=== PATIENT | male | born 1940 | race Caucasian/White ===

== ENCOUNTER 2016-11-23 16:38 | Outpatient (CLI) | payer MEDICARE, OTHER | END 2016-11-23 16:39 | disposition home or self-care (01) | DX: M79.605 Pain in left leg (principal); M25.562 Pain in left knee ==

== ENCOUNTER 2016-11-23 16:58 | Outpatient (CLI) | payer MEDICARE, OTHER | END 2016-11-23 16:59 | disposition home or self-care (01) | DX: M79.605 Pain in left leg (principal); M25.562 Pain in left knee ==

== ENCOUNTER 2017-11-15 08:00 | Outpatient (CLI) | payer MEDICARE, OTHER ==
[2017-11-15 12:33] LABS: ALBUMIN 4.1 g/dL (3.2-5.5); ALBUMIN/GLOBULIN RATIO 1.5 (1.0-2.2); ALKALINE PHOSPHATASE 45 IU/L (42-121); ALT ALANINE AMINOTRANSFERASE 18 IU/L (10-60); AST ASPARTATE AMINOTRANSFERASE 19 IU/L (10-42); BILIRUBIN,TOTAL 0.8 mg/dL (0.2-1.0); BUN - BLOOD UREA NITROGEN 24 mg/dL (6-20); CALCIUM 9.3 mg/dL (8.5-10.3); CARBON DIOXIDE - CO2 28 mmol/L (21-32); CHLORIDE 103 mmol/L (101-111); CHOL/HDL RATIO 5.2 (<5.0); CHOLESTEROL 223 mg/dL; CREATININE 1.1 mg/dL (0.6-1.2); GFR - MDRD 65 (>89); GLUCOSE 94 mg/dL (70-100); HDL CHOLESTEROL 43 mg/dL; LDL CHOLESTEROL,CALCULATED 162 mg/dL; LDL/HDL RATIO 3.8 (<3.6); SODIUM 136 mmol/L (135-145); TOTAL PROTEIN 6.8 g/dL (6.7-8.2); VLDL CHOLESTEROL 18 mg/dL
[2017-11-15 12:35] LABS: BASOPHILS % (AUTO) 0.9 %; EOSINOPHILS # (AUTO) 0.1 10^3/uL (0.0-0.7); EOSINOPHILS % (AUTO) 1.5 %; HGB - HEMOGLOBIN 14.1 g/dL (14.0-18.0); MEAN CORPUSCULAR HEMOGLOBIN 31.9 pg (27.0-31.0); MEAN CORPUSCULAR HGB CONC 34.8 g/dL (32.0-36.0); MEAN CORPUSCULAR VOLUME 91.6 fL (80.0-94.0); MEAN PLATELET VOLUME 8.6 fL (7.4-11.4); MONOCYTES # (AUTO) 0.6 10^3/uL (0.0-1.0); MONOCYTES % (AUTO) 10.7 %; NEUTROPHILS # (AUTO) 3.5 10^3/uL (1.5-6.6); NEUTROPHILS % (AUTO) 66.9 %; PLT - PLATELET COUNT 178 10^3/uL (130-450); RED BLOOD COUNT 4.42 10^6/uL (4.70-6.10); RED CELL DISTRIBUTION WIDTH 13.3 % (12.0-15.0); WHITE BLOOD COUNT 5.2 x10^3/uL (4.8-10.8)
== END 2017-11-15 08:01 | disposition home or self-care (01) ==
LOC: LAB.WCP 08:00
PROVIDERS: ATTEND Family Medicine
DX: I10 Essential (primary) hypertension (principal); Z12.5 Encounter for screening for malignant neoplasm of prostate; E78.5 Hyperlipidemia, unspecified
CPT/HCPCS: 36415; 80053; 80061; 85025; G0103; 83721; 84153

== ENCOUNTER 2017-11-25 08:00 | Outpatient (CLI) | payer MEDICARE, OTHER ==
[2017-11-25 19:59] LABS: THYROID STIMULATING HORMONE 1.87 uIU/mL (0.34-5.60)
[2017-11-25 20:02] LABS: FREE T4 (FREE THYROXINE) 0.88 ng/dL (0.58-1.64)
== END 2017-11-25 08:01 | disposition home or self-care (01) ==
LOC: LAB.WCP 08:00
PROVIDERS: ATTEND Family Medicine
DX: R53.83 Other fatigue (principal)
CPT/HCPCS: 36415; 82306; 82607; 82746; 84439; 84443; 84481

== ENCOUNTER 2017-11-26 11:01 | Outpatient (CLI) | payer MEDICARE, OTHER | END 2017-11-26 11:02 | disposition home or self-care (01) | LOC: DI 11:01 | PROVIDERS: ATTEND Family Medicine | DX: R07.89 Other chest pain (principal); I35.1 Nonrheumatic aortic (valve) insufficiency; I77.810 Thoracic aortic ectasia | CPT/HCPCS: 93306 ==

== ENCOUNTER 2017-12-09 09:26 | Outpatient (CLI) | payer MEDICARE, OTHER ==
[2017-12-09 10:02] LABS: CREATININE 1.2 mg/dL (0.6-1.2)
[2017-12-09] MEDS ORDERED: IOPAMIDOL-300 100 ML VIAL ONE (10:41)
[2017-12-09] MEDS ORDERED: IOPAMIDOL-300 100 ML VIAL IVP ONE (14:08)
--- NOTE | 2017-12-09 15:29 | CT Report ---
CT ANGIOGRAM AORTA: 12/09/2017 CLINICAL INDICATION: Dilated aortic root. TECHNIQUE: Axial CT images of the chest were obtained with 80 mL Isovue 300 intravenously, with sagittal and coronal 3-D reconstructions performed. FINDINGS: The coronary arteries demonstrate calcification. There is mild prominence of the ascending aorta. At the sinus of Valsalva, the ascending aorta measures 3.8 cm, and 4.3 cm at the level of the main pulmonary artery. The ascending aorta just distal to the takeoff of the left subclavian artery measures 2.9 cm, then there is mild ectasia of the proximal descending thoracic aorta, measuring 3.7 cm. At the level of the main pulmonary artery, the descending thoracic aorta measures 3.4 x 2.8 cm. The lungs demonstrate mild emphysema. No pulmonary nodule or mass lesion is appreciated. No effusion or pneumothorax is present. Osseous structures demonstrate degenerative changes. IMPRESSION: MILD ECTASIA OF THE THORACIC AORTA, WITHOUT JOHNSON ANEURYSMAL DILATATION. MILD EMPHYSEMA. In accordance with CT protocol optimization, one or more of the following dose reduction techniques were utilized for this exam: automated exposure control, adjustment of mA and/or KV based on patient size, or use of iterative reconstructive technique. TD: 12/09/2017 15:28
== END 2017-12-09 09:27 | disposition home or self-care (01) ==
LOC: LAB 09:26 → DI 09:27
PROVIDERS: ATTEND Family Medicine
DX: I77.810 Thoracic aortic ectasia (principal); J43.9 Emphysema, unspecified
CPT/HCPCS: 36415; 71275; 82565; Q9967

== ENCOUNTER 2018-09-06 09:10 | Emergency (ER) | payer MEDICARE, OTHER ==
--- NOTE | 2018-09-06 09:27 | ED Physician Documentation ---
History of Present Illness - Stated complaint Stated Complaint: BLOOD PRESSURE CONCERNS - Chief complaint Chief Complaint: General - History obtained from History obtained from: Patient - History of Present Illness Timing: Other (78-year-old gentleman with history of hypertension, takes long- acting metoprolol, 50 mg once a day. Saw his physician for routine visit about a week ago and it was noted in the office that his blood pressure was high and he was told to start monitoring it. Since then he has been running high blood pressures, usually in the range of 180 over read to as high as 200/90 this morning. He is asymptomatic, specifically he has no chest pain, trouble breathing, swollen ankles, or acute urinary complaints other than nocturia which is chronic.) Review of Systems Constitutional: denies: Fever, Chills, Fatigue Cardiac: denies: Chest pain / pressure, Palpitations Respiratory: denies: Dyspnea, Cough GI: denies: Abdominal Pain PD PAST MEDICAL HISTORY - Past Medical History Cardiovascular: Hypertension Musculoskeletal: Osteoarthritis - Past Surgical History Past Surgical History: No - Present Medications Home Medications: Ambulatory Orders Medication Instructions Recorded Confirmed Acetaminophen [Tylenol] 650 mg PO Q6H #30 tablet 09/21/14 Carisoprodol [Soma] 350 mg PO Q8H PRN #15 tablet 09/21/14 Metoprolol Tartrate 25 mg ORAL DAILY 09/21/14 09/21/14 oxyCODONE [Roxicodone] 5 mg PO Q6H PRN #15 tablet 09/21/14 predniSONE [Deltasone] 40 mg PO DAILY 5 Days tablet 09/21/14 Lisinopril [Prinivil] 10 mg PO DAILY #30 tablet 09/06/18 - Allergies Allergies/Adverse Reactions: Allergies Allergy/AdvReac Type Severity Reaction Status Date / Time No Known Drug Allergies Allergy Verified 09/21/14 11:16 - Social History Does the pt smoke?: No Smoking Status: Never smoker Does the pt drink ETOH?: Yes Does the pt have substance abuse?: No - Immunizations Immunizations are current?: No Immunizations: TDAP >10years/unknown PD ED PE NORMAL - Vitals Vital signs reviewed: Yes - General General: Alert and oriented X 3, No acute distress - Neck Neck: Supple, no meningeal sign, No bony TTP - Cardiac Cardiac: RRR, No murmur - Respiratory Respiratory: No respiratory distress, Clear bilaterally - Abdomen Abdomen: Non tender - Extremities Extremities: No edema - Neuro Neuro: Alert and oriented X 3, Normal speech Results - Vitals Vitals: Vital Signs - 24 hr 09/06/18 09/06/18 09/06/18 09:19 09:45 09:48 Temperature 36.0 C L Heart Rate 66 62 58 L Respiratory 16 16 15 Rate Blood Pressure 184/82 H 159/72 H 147/67 H O2 Saturation 98 100 100 Oxygen O2 Source Room air - EKG (time done) 0932 Rate: Rate (enter#) (62) Rhythm: NSR [place]: Normal Intervals: Prolonged NV (241msec) QRS: Normal Ischemia: Non specific changes (Concave JPE anterior with q waves III/F and V1/2) Computer interpretation: Agree with computer - Labs Labs: Laboratory Tests 09/06/18 09/06/18 09:35 09:35 Sodium 133 L Potassium 4.1 Chloride 100 L Carbon Dioxide 28 Anion Gap 5.0 L BUN 18 Creatinine 1.0 Estimated GFR (MDRD) 72 L Glucose 108 H Calcium 9.4 Troponin I < 0.04 Departure - Departure Disposition: 01 Home, Self Care Clinical Impression: Hyponatremia Hypertension Qualifiers: Hypertension type: essential hypertension Qualified Code(s): I10 - Essential (primary) hypertension Condition: Good Record reviewed to determine appropriate education?: Yes Instructions: ED HTN Established Prescriptions: Lisinopril [Prinivil] 10 mg PO DAILY #30 tablet Comments: Follow-up with your doctor within the week for blood pressure recheck. Also your sodium was mildly low today at 133 and she may want to recheck that at some point.
[2018-09-06 09:51] LABS: CALCIUM 9.4 mg/dL (8.5-10.3)
[2018-09-06 10:04] VITALS: BP 145/70
== END 2018-09-06 10:10 | disposition home or self-care (01) ==
LOC: ED 09:10
DX: E87.1 Hypo-osmolality and hyponatremia (principal); I10 Essential (primary) hypertension; I44.0 Atrioventricular block, first degree
CPT/HCPCS: 36415; 80048; 84484; 93005; 99283

== ENCOUNTER 2018-12-22 08:02 | Outpatient (CLI) | payer MEDICARE, OTHER ==
[2018-12-22 08:37] LABS: BASOPHILS # (AUTO) 0.1 10^3/uL (0.0-0.1); EOSINOPHILS # (AUTO) 0.1 10^3/uL (0.0-0.7); EOSINOPHILS % (AUTO) 1.3 %; HGB - HEMOGLOBIN 14.4 g/dL (14.0-18.0); LYMPHOCYTES # (AUTO) 0.9 10^3/uL (1.5-3.5); MEAN CORPUSCULAR HEMOGLOBIN 31.4 pg (27.0-31.0); MEAN CORPUSCULAR HGB CONC 34.3 g/dL (32.0-36.0); MEAN CORPUSCULAR VOLUME 91.7 fL (80.0-94.0); MEAN PLATELET VOLUME 7.9 fL (7.4-11.4); MONOCYTES # (AUTO) 0.5 10^3/uL (0.0-1.0); MONOCYTES % (AUTO) 9.8 %; NEUTROPHILS # (AUTO) 3.7 10^3/uL (1.5-6.6); NEUTROPHILS % (AUTO) 70.9 %; PLT - PLATELET COUNT 188 10^3/uL (130-450); RED BLOOD COUNT 4.57 10^6/uL (4.70-6.10); RED CELL DISTRIBUTION WIDTH 13.7 % (12.0-15.0); WHITE BLOOD COUNT 5.3 x10^3/uL (4.8-10.8)
[2018-12-22 08:53] LABS: ALBUMIN 4.2 g/dL (3.2-5.5); ALBUMIN/GLOBULIN RATIO 1.4 (1.0-2.2); ALKALINE PHOSPHATASE 55 IU/L (42-121); ALT ALANINE AMINOTRANSFERASE 27 IU/L (10-60); AST ASPARTATE AMINOTRANSFERASE 29 IU/L (10-42); BILIRUBIN,TOTAL 1.2 mg/dL (0.2-1.0); BUN - BLOOD UREA NITROGEN 20 mg/dL (6-20); CHOLESTEROL 224 mg/dL; CREATININE 1.1 mg/dL (0.6-1.2); GFR - MDRD 65 (>89); GLUCOSE 111 mg/dL (70-100); HDL CHOLESTEROL 56 mg/dL; LDL CHOLESTEROL,CALCULATED 145 mg/dL; LDL/HDL RATIO 2.6 (<3.6); TOTAL PROTEIN 7.1 g/dL (6.7-8.2); VLDL CHOLESTEROL 23 mg/dL
[2018-12-22 08:57] LABS: CALCIUM 9.7 mg/dL (8.5-10.3); CARBON DIOXIDE - CO2 28 mmol/L (21-32); CHLORIDE 98 mmol/L (101-111); SODIUM 134 mmol/L (135-145)
== END 2018-12-22 08:03 | disposition home or self-care (01) ==
LOC: LAB 08:02
PROVIDERS: ATTEND Nurse Practitioner
DX: R13.10 Dysphagia, unspecified (principal); I10 Essential (primary) hypertension; E78.5 Hyperlipidemia, unspecified
CPT/HCPCS: 36415; 80053; 80061; 83721; 84443; 85025

== ENCOUNTER 2018-12-25 15:21 | Outpatient (CLI) | payer MEDICARE, OTHER ==
--- NOTE | 2018-12-26 09:54 | Ultrasound Report ---
Reason: DYSPHAGIA Procedure Date: 12/25/2018 Accession Number: [id number] / [id number] Procedure: US - Head or Neck Soft Tissue CPT Code: FULL RESULT: EXAM: THYROID ULTRASOUND EXAM DATE: 12/25/2018 04:40 PM. CLINICAL HISTORY: DYSPHAGIA. COMPARISON: None. TECHNIQUE: Real time sonographic imaging of the thyroid was performed by the dryer feeder. Multiple indirect sales representative static images were saved for review. FINDINGS: THYROID GLAND: Several scattered tiny bilateral thyroid cysts measuring up to 0.2 cm. Right Lobe: 4.5 x 1.9 x 2.2 cm, volume 9.8 cc. Normal background echotexture. Right Lobe Nodules: No solid nodule. Left Lobe: 4.2 x 1.5 x 2.3 cm, volume 7.5 cc. Normal background echotexture. Left Lobe Nodules: No solid nodule. Isthmus: 0.4 cm AP. Isthmic Nodules: No solid nodule. LYMPH NODES: No adenopathy demonstrated in the central or lateral compartment. OTHER: None. IMPRESSION: 1. Several scattered tiny bilateral thyroid cysts. 2. No suspicious thyroid nodule or soft tissue adenopathy evident. Management recommendations are based on 2015 [place] [employer] Management Guidelines for Adult Patients with Thyroid Nodules and Differentiated Thyroid Cancer. RADIA
== END 2018-12-25 15:22 | disposition home or self-care (01) ==
LOC: DI 15:21
PROVIDERS: ATTEND Nurse Practitioner
DX: E04.2 Nontoxic multinodular goiter (principal); R13.10 Dysphagia, unspecified
CPT/HCPCS: 76536

== ENCOUNTER 2019-08-13 10:35 | Outpatient (CLI) | payer MEDICARE, OTHER ==
--- NOTE | 2019-08-14 13:10 | XRAY Report ---
Reason: BACK PAIN,LUMBAR Procedure Date: 08/13/2019 Accession Number: [id number] / [id number] Procedure: XR - Lumbar Spine 2 View CPT Code: FULL RESULT: EXAM: LUMBOSACRAL SPINE RADIOGRAPHY EXAM DATE: 08/13/2019 10:50 AM. CLINICAL HISTORY: BACK Pain, lumbar. COMPARISONS: None. TECHNIQUE: 3 views. FINDINGS: Alignment: Grade 1 anterolisthesis of L3 on L4. No scoliosis. Bones: Five [id number] lumbar vertebral bodies are present. No fractures or bone lesions. Mild osteophytic spurring at L4 and L5. Disks: Moderate disk space narrowing in the mid to lower lumbar spine, worst at L4-L5 and L5-S1. Facets: Moderate hypertrophic changes of the facet articulations bilaterally L3-L4, L4-L5, and L5-S1. Sacroiliac Joints: Within normal limits Soft Tissues: Normal. The visualized bowel gas pattern is normal. IMPRESSION: Moderate degenerative changes of the mid to lower lumbar spine. Grade 1 anterolisthesis of L3 on L4. RADIA
== END 2019-08-13 10:36 | disposition home or self-care (01) ==
LOC: DI 10:35
PROVIDERS: ATTEND Nurse Practitioner
DX: M51.36 Other intervertebral disc degeneration, lumbar region (principal); M51.37 Other intervertebral disc degeneration, lumbosacral region; M47.816 Spondylosis without myelopathy or radiculopathy, lumbar region; M47.817 Spondylosis without myelopathy or radiculopathy, lumbosacral region; M43.16 Spondylolisthesis, lumbar region
CPT/HCPCS: 72100

== ENCOUNTER 2019-10-26 08:46 | Outpatient (CLI) | payer MEDICARE, OTHER ==
--- NOTE | 2019-10-26 10:12 | Ultrasound Report ---
Reason: THYROID NODULE Procedure Date: 10/26/2019 Accession Number: [id number] / [id number] Procedure: US - Head or Neck Soft Tissue CPT Code: Final Report FULL RESULT: EXAM: THYROID ULTRASOUND EXAM DATE: 10/26/2019 09:33 AM. CLINICAL HISTORY: THYROID NODULE. COMPARISON: HEAD OR NECK SOFT TISSUE 12/25/2018 4:23 PM. TECHNIQUE: Real time sonographic imaging of the thyroid was performed by the grain manager. Multiple account representative static images were saved for review. FINDINGS: THYROID GLAND: Right Lobe: 4.6 x 1.9 x 1.6 cm, volume 7.3 cc. Normal background echotexture. Right Lobe Nodules: 1. Posterior midpole 7 x 7 x 5 mm hypoechoic solid nodule. Left Lobe: 4.2 x 1.6 x 1.6 cm, volume 5.6 cc. Normal background echotexture. Left Lobe Nodules: 1. Few scattered small cystic appearing nodules measuring up to approximately 3 mm at the lower pole. Isthmus: 0.4 cm AP. Isthmic Nodules: None. LYMPH NODES: No adenopathy demonstrated in the central or lateral compartment. OTHER: None. IMPRESSION: 1. Subcentimeter right thyroid nodule and few scattered small cystic appearing nodules in the left thyroid. Management recommendations are based on 2015 [place] [employer] Management Guidelines for Adult Patients with Thyroid Nodules and Differentiated Thyroid Cancer. RADIA
== END 2019-10-26 08:47 | disposition home or self-care (01) ==
LOC: DI 08:46
PROVIDERS: ATTEND Nurse Practitioner
DX: E04.2 Nontoxic multinodular goiter (principal)
CPT/HCPCS: 76536

== ENCOUNTER 2019-11-12 07:37 | Outpatient (CLI) | payer MEDICARE, OTHER ==
--- NOTE | 2019-11-12 12:45 | CARDIAC PROCEDURE NOTE ---
DATE OF SERVICE: 11/12/2019 Physician: Shy Nettles MD, [facility] INDICATION: Chest pain, hypertension, dilated aortic root, abnormal EKG. CARDIAC RISK FACTORS: Male gender, advanced age, hypertension. DESCRIPTION OF PROCEDURE: After signing informed consent, the patient underwent a Nicolas-protocol treadmill stress test with Echo imaging pre and post exercise. RESTING HEART RATE: 60. PEAK HEART RATE: 122 (85% predicted maximum heart rate for age). RESTING BLOOD PRESSURE: 132/75. PEAK BLOOD PRESSURE: 219/76. The patient exercised for 7 minutes and 50 seconds on a Nicolas-protocol treadmill stress test. He achieved a peak heart rate of 122 (85% PMHR) and 9.95 METS. The patient denied any chest pain throughout exercise. He had moderate shortness of breath at peak. Excessive blood pressure response to exercise was seen (the patient was told not to take any morning medications). Oxygen saturation was 90-98% on room air throughout the entire test. RESTING EKG: Normal sinus rhythm, first-degree AV block, rare PVC, poor R-wave progression. EKG AT PEAK: 1.[address] depressions develop in leads V5 and V6. SUMMARY: 1. Abnormal resting EKG. 2. Fair exercise tolerance. 3. ST depressions developed, suggestive of ischemia by EKG criteria during treadmill exercise. 4. Blood pressure response was excessive to exercise, but the patient was told not to take morning medications. 5. Cardiac risk based on all the above: Moderate-High. 6. Echo images looking for abnormal wall motion reported separately. cc: ASHWIN Funez NP-C TD: 11/12/2019 12:24 [facility]
== END 2019-11-12 07:38 | disposition home or self-care (01) ==
LOC: DI 07:37
PROVIDERS: ATTEND Nurse Practitioner
DX: R07.89 Other chest pain (principal); I77.810 Thoracic aortic ectasia; R94.31 Abnormal electrocardiogram [ECG] [EKG]; I10 Essential (primary) hypertension; I35.1 Nonrheumatic aortic (valve) insufficiency
CPT/HCPCS: 93350

== ENCOUNTER 2020-05-03 08:38 | Outpatient (CLI) | payer MEDICARE, OTHER ==
[2020-05-03 08:55] LABS: BASOPHILS % (AUTO) 0.7 %; EOSINOPHILS # (AUTO) 0.1 10^3/uL (0.0-0.7); LYMPHOCYTES # (AUTO) 0.9 10^3/uL (1.5-3.5); LYMPHOCYTES % (AUTO) 20.4 %; MEAN CORPUSCULAR HEMOGLOBIN 31.8 pg (27.0-31.0); MEAN CORPUSCULAR HGB CONC 34.1 g/dL (32.0-36.0); MEAN CORPUSCULAR VOLUME 93.2 fL (80.0-94.0); MEAN PLATELET VOLUME 9.6 fL (7.4-11.4); MONOCYTES # (AUTO) 0.6 10^3/uL (0.0-1.0); MONOCYTES % (AUTO) 13.1 %; NEUTROPHILS # (AUTO) 2.8 10^3/uL (1.5-6.6); NEUTROPHILS % (AUTO) 63.6 %; PLT - PLATELET COUNT 187 10^3/uL (130-450); RED CELL DISTRIBUTION WIDTH 12.3 % (12.0-15.0); WHITE BLOOD COUNT 4.4 x10^3/uL (4.8-10.8)
[2020-05-03 09:08] LABS: ALBUMIN 4.2 g/dL (3.2-5.5); ALBUMIN/GLOBULIN RATIO 1.8 (1.0-2.2); ALKALINE PHOSPHATASE 46 IU/L (42-121); ALT ALANINE AMINOTRANSFERASE 17 IU/L (10-60); AST ASPARTATE AMINOTRANSFERASE 21 IU/L (10-42); BUN - BLOOD UREA NITROGEN 24 mg/dL (6-20); CALCIUM 9.6 mg/dL (8.5-10.3); CARBON DIOXIDE - CO2 28 mmol/L (21-32); CHLORIDE 96 mmol/L (101-111); CHOL/HDL RATIO 3.9 (<5.0); CHOLESTEROL 201 mg/dL; CREATININE 1.1 mg/dL (0.6-1.2); GLUCOSE 108 mg/dL (70-100); HDL CHOLESTEROL 51 mg/dL; LDL CHOLESTEROL,CALCULATED 140 mg/dL; LDL/HDL RATIO 2.7 (<3.6); SODIUM 133 mmol/L (135-145); TOTAL PROTEIN 6.5 g/dL (6.7-8.2); VLDL CHOLESTEROL 10 mg/dL
[2020-05-03 11:41] LABS: HB2 TOTAL 14.4 g/dL; HEMOGLOBIN A1C 0.56 g/dL; HEMOGLOBIN A1C % 5.7 % (4.6-6.2)
== END 2020-05-03 08:39 | disposition home or self-care (01) ==
LOC: LAB 08:38
PROVIDERS: ATTEND Nurse Practitioner
DX: R94.31 Abnormal electrocardiogram [ECG] [EKG] (principal); E78.5 Hyperlipidemia, unspecified; Z12.5 Encounter for screening for malignant neoplasm of prostate; R73.01 Impaired fasting glucose; E04.1 Nontoxic single thyroid nodule; R53.83 Other fatigue
CPT/HCPCS: 36415; 80053; 80061; 83036; 84443; 85025; G0103; 83721; 84153

== ENCOUNTER 2020-05-10 15:53 | Outpatient (CLI) | payer MEDICARE, OTHER ==
--- NOTE | 2020-05-10 17:32 | XRAY Report ---
PROCEDURE: Cervical Spine 2 View INDICATIONS: Neck pain TECHNIQUE: 3 view(s) of the cervical spine were acquired. COMPARISON: None. FINDINGS: Bones: Straightening of the usual cervical lordosis. Disc height loss from C3-C4 through C6-C7 with a ssociated degenerative endplate changes, facet hypertrophy, and uncovertebral hypertrophy. Vertebral body heights maintained. Soft tissues: No prevertebral soft tissue swelling. IMPRESSION: Degenerative changes from C3-C4 through C6-C7. MRI of the cervical spine could be consid ered for further evaluation if clinically warranted. Reviewed by: Reed Landon MD on 05/10/2020 5:31 PM PDT Approved by: Reed Landon MD on 05/10/2020 5:31 PM PDT Station ID: [id number]
== END 2020-05-10 15:54 | disposition home or self-care (01) ==
LOC: DI 15:53
PROVIDERS: ATTEND Nurse Practitioner
DX: M50.31 Other cervical disc degeneration, high cervical region (principal); M47.812 Spondylosis without myelopathy or radiculopathy, cervical region
CPT/HCPCS: 72040

== ENCOUNTER 2020-07-20 09:00 | Outpatient (CLI) | payer MEDICARE, OTHER ==
[2020-07-20 11:41] LABS: BASOPHILS % (AUTO) 0.4 %; EOSINOPHILS # (AUTO) 0.1 10^3/uL (0.0-0.7); EOSINOPHILS % (AUTO) 1.3 %; HGB - HEMOGLOBIN 12.7 g/dL (14.0-18.0); LYMPHOCYTES # (AUTO) 0.8 10^3/uL (1.5-3.5); LYMPHOCYTES % (AUTO) 17.9 %; MEAN CORPUSCULAR HEMOGLOBIN 30.8 pg (27.0-31.0); MEAN CORPUSCULAR HGB CONC 33.2 g/dL (32.0-36.0); MONOCYTES # (AUTO) 0.6 10^3/uL (0.0-1.0); NEUTROPHILS # (AUTO) 3.1 10^3/uL (1.5-6.6); NEUTROPHILS % (AUTO) 68.4 %; PLT - PLATELET COUNT 217 10^3/uL (130-450); RED BLOOD COUNT 4.12 10^6/uL (4.70-6.10); RED CELL DISTRIBUTION WIDTH 12.7 % (12.0-15.0); WHITE BLOOD COUNT 4.6 x10^3/uL (4.8-10.8)
[2020-07-20 11:48] LABS: ALBUMIN/GLOBULIN RATIO 1.5 (1.0-2.2); BILIRUBIN,TOTAL 0.8 mg/dL (0.2-1.0); CALCIUM 9.5 mg/dL (8.5-10.3); TOTAL PROTEIN 6.6 g/dL (6.7-8.2)
== END 2020-07-20 23:59 | disposition home or self-care (01) ==
LOC: LAB.WCP 09:00
PROVIDERS: ATTEND Family Medicine
DX: R10.9 Unspecified abdominal pain (principal)
CPT/HCPCS: 36415; 80053; 85025

== ENCOUNTER 2020-08-01 09:19 | Outpatient (CLI) | payer MEDICARE, OTHER ==
[2020-08-01] MEDS ORDERED: IOVERSOL 320 100 ML VIAL IVP ONE ×2 (09:34→17:26)
[2020-08-01] MEDS ORDERED: IOVERSOL 320 50 ML VIAL ONE (09:34)
--- NOTE | 2020-08-01 16:19 | CT Report ---
PROCEDURE: Abdomen/Pelvis W INDICATIONS: RLQ ABDOMINAL PAIN CONTRAST: IV CONTRAST: Optiray 320 ml: 100 PO CONTRAST: Optiray 320 ml50 TECHNIQUE: After the administration of oral and intravenous contrast, 5 mm thick sections acquired from the diap hragms to the symphysis. 5 mm thick coronal and sagittal reformats were acquired. For radiation dos e reduction, the following was used: automated exposure control, adjustment of mA and/or kV accordin g to patient size. COMPARISON: None. FINDINGS: Image quality: Excellent. ABDOMEN: Lung bases: Lung bases are clear. Heart size is normal. Solid organs: Liver and spleen are normal in size and enhancement. Gallbladder appears normal. Bladimir iary system is non dilated. Pancreas enhances normally. No adrenal nodules. Kidneys demonstrate no rmal size and enhancement, without hydronephrosis. Peritoneum and bowel: Multilevel diverticula are seen in the sigmoid colon. There is a trace amount o f fat stranding adjacent to the sigmoid colon, and mild diverticulitis is not excluded. No ascites or pneumoperitoneum is seen. There are no signs of bowel obstruction. Nodes and vessels: No retroperitoneal or mesenteric adenopathy by size criteria. Aorta and inferior vena cava are normal in size. Mild atherosclerotic calcifications are seen in the aorta. Miscellaneous: No ventral hernias. PELVIS: Genitourinary: Bladder wall thickness is normal. Miscellaneous: No inguinal hernias or adenopathy. Bones: No suspicious bony lesions. No vertebral body compression fractures. Multiple ossifications are seen adjacent to the pubic symphysis on the left, which are likely related to prior trauma. No a cute fracture is seen. Degenerative changes are seen in the right sacroiliac joint and the included s pine. IMPRESSION: Colonic diverticulosis with trace inflammatory fat stranding adjacent to sigmoid colon that is suspic ious for mild acute diverticulitis. No focal fluid collection or pneumoperitoneum is seen. Reviewed by: Sony Callahan MD on 08/01/2020 12:02 PM PDT Approved by: Sony Callahan MD on 08/01/2020 12:02 PM PDT Station ID: [id number]
[2020-08-01] MEDS ORDERED: IOVERSOL 320 50 ML VIAL PO ONE (17:26)
== END 2020-08-01 09:20 | disposition home or self-care (01) ==
LOC: DI 09:19
PROVIDERS: ATTEND Family Medicine
DX: K57.30 Diverticulosis of large intestine without perforation or abscess without bleeding (principal); R93.3 Abnormal findings on diagnostic imaging of other parts of digestive tract
CPT/HCPCS: 74177; Q9967

== ENCOUNTER 2021-01-18 08:00 | Outpatient (CLI) | payer MEDICARE, OTHER ==
[2021-01-18 12:21] LABS: BASOPHILS % (AUTO) 0.2 %; EOSINOPHILS % (AUTO) 0.6 %; HCT - HEMATOCRIT 36.6 % (42.0-52.0); HGB - HEMOGLOBIN 12.3 g/dL (14.0-18.0); LYMPHOCYTES # (AUTO) 0.6 10^3/uL (1.5-3.5); LYMPHOCYTES % (AUTO) 11.3 %; MEAN CORPUSCULAR HEMOGLOBIN 32.1 pg (27.0-31.0); MEAN CORPUSCULAR HGB CONC 33.6 g/dL (32.0-36.0); MEAN CORPUSCULAR VOLUME 95.6 fL (80.0-94.0); MEAN PLATELET VOLUME 9.9 fL (7.4-11.4); MONOCYTES # (AUTO) 0.3 10^3/uL (0.0-1.0); MONOCYTES % (AUTO) 5.9 %; NEUTROPHILS % (AUTO) 81.6 %; PLT - PLATELET COUNT 198 10^3/uL (130-450); RED BLOOD COUNT 3.83 10^6/uL (4.70-6.10); RED CELL DISTRIBUTION WIDTH 12.8 % (12.0-15.0)
[2021-01-18 12:39] LABS: ESTIMATED AVERAGE GLUCOSE 120 mg/dL (70-100); HEMOGLOBIN A1c% 5.8 % (4.27-6.07)
[2021-01-18 12:47] LABS: THYROID STIMULATING HORMONE 1.2 uIU/mL (0.34-5.60)
[2021-01-18 12:50] LABS: ALBUMIN 4.1 g/dL (3.2-5.5); ALBUMIN/GLOBULIN RATIO 1.5 (1.0-2.2); ALKALINE PHOSPHATASE 45 IU/L (42-121); ALT ALANINE AMINOTRANSFERASE 21 IU/L (10-60); AST ASPARTATE AMINOTRANSFERASE 24 IU/L (10-42); BILIRUBIN,TOTAL 0.9 mg/dL (0.2-1.0); BUN - BLOOD UREA NITROGEN 22 mg/dL (6-20); CALCIUM 9.8 mg/dL (8.5-10.3); CARBON DIOXIDE - CO2 25 mmol/L (21-32); CHLORIDE 100 mmol/L (101-111); CHOL/HDL RATIO 3.6 (<5.0); CHOLESTEROL 218 mg/dL; GFR - MDRD 72 (>89); GLUCOSE 107 mg/dL (70-100); HDL CHOLESTEROL 60 mg/dL; LDL CHOLESTEROL,CALCULATED 142 mg/dL; LDL/HDL RATIO 2.4 (<3.6); POTASSIUM 4.7 mmol/L (3.5-5.0); SODIUM 135 mmol/L (135-145); TOTAL PROTEIN 6.8 g/dL (6.7-8.2); TRIGLYCERIDES 81 mg/dL; VLDL CHOLESTEROL 16 mg/dL
[2021-01-18 12:51] LABS: CREATININE,URINE 57.4 mg/dL; MICROALBUM/CREATININE RATIO,UR 8.7 ug/mg (<30.0); MICROALBUMIN,URINE 0.5 mg/dL (0-300.0)
== END 2021-01-18 23:59 | disposition home or self-care (01) ==
LOC: LAB.WCP 08:00
PROVIDERS: ATTEND Internal Medicine
DX: I10 Essential (primary) hypertension (principal); R73.01 Impaired fasting glucose
CPT/HCPCS: 36415; 80053; 80061; 82043; 82570; 83036; 83721; 84443; 85025

== ENCOUNTER 2021-01-25 08:00 | Outpatient (CLI) | payer MEDICARE, OTHER ==
[2021-01-25 11:55] LABS: ABSOLUTE RETICS # AUTO 0.082 10^6/uL (0.020-0.110); RED BLOOD COUNT 4.06 10^6/uL (4.70-6.10); RETICULOCYTE COUNT % (AUTO) 2.01 % (0.5-2.3)
[2021-01-25 12:58] LABS: % IRON SATURATION 31 % (20-50); IRON 110 ug/dL (45-182); TOTAL IRON BINDING CAPACITY 356 ug/dL (250-450); TRANSFERRIN 254 mg/dL (180-329)
[2021-01-25 12:59] LABS: FERRITIN 104.1 ng/mL (23.9-336.2)
== END 2021-01-25 23:59 | disposition home or self-care (01) ==
LOC: LAB.WCP 08:00
PROVIDERS: ATTEND Internal Medicine
DX: D64.9 Anemia, unspecified (principal)
CPT/HCPCS: 36415; 82607; 82728; 83540; 84466; 85045

== ENCOUNTER 2021-01-27 16:30 | Outpatient (CLI) | payer MEDICARE, OTHER ==
[2021-01-28 14:04] LABS: FECAL OCCULT BLOOD (FIT) NEGATIVE (NEGATIVE)
== END 2021-01-27 23:59 | disposition home or self-care (01) ==
LOC: LAB.R 16:30
PROVIDERS: ATTEND Internal Medicine
DX: D64.9 Anemia, unspecified (principal)
CPT/HCPCS: 82274

== ENCOUNTER 2021-01-28 09:42 | Outpatient (CLI) | payer MEDICARE, OTHER ==
--- NOTE | 2021-01-28 10:08 | XRAY Report ---
PROCEDURE: Hip w/Pelvis 1V RT INDICATIONS: RIGHT HIP PAIN TECHNIQUE: AP pelvis with lateral view(s) of the right hip(s). COMPARISON: Correlation is made with prior CT, 08/01/2020 FINDINGS: Bones: No fractures or dislocations. Pelvic ring appears intact. No suspicious bony lesions. There is moderate superior joint space narrowing seen involving both hips. There is associated remode ling change, with subchondral sclerosis and osteophyte formation. Note is made of age-appropriate degenerative change of the lower lumbar spine. Soft tissues: The visualized bowel gas pattern is normal. No suspicious soft tissue calcifications. IMPRESSION: Moderate bilateral hip degenerative change can be seen by plain film. Reviewed by: Joce Lilly MD on 01/28/2021 9:06 AM [facility] Approved by: Joce Lilly MD on 01/28/2021 9:06 AM [facility] Station ID: [id number]
== END 2021-01-28 09:43 | disposition home or self-care (01) ==
LOC: DI.N 09:42
PROVIDERS: ATTEND Family Medicine
DX: M16.0 Bilateral primary osteoarthritis of hip (principal)

== ENCOUNTER 2021-02-26 08:56 | Observation (INO) | payer MEDICARE, OTHER ==
--- OUTSIDE RECORDS SUMMARY | 2021-02-26 09:00 | EXTERNAL MEDICAL SUMMARY RPT | Continuity of Care Document ---
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
[2021-02-26] MEDS ORDERED: METOPROLOL 5 MG/5 ML VIAL IVP STA (09:06)
[2021-02-26] MEDS ORDERED: ASPIRIN 325 MG TABLET PO STA (09:12)
[2021-02-26 09:21] LABS: BASOPHILS % (AUTO) 0.4 %; EOSINOPHILS # (AUTO) 0.1 10^3/uL (0.0-0.7); EOSINOPHILS % (AUTO) 1.1 %; HGB - HEMOGLOBIN 13.8 g/dL (14.0-18.0); LYMPHOCYTES # (AUTO) 0.8 10^3/uL (1.5-3.5); LYMPHOCYTES % (AUTO) 14.8 %; MEAN CORPUSCULAR HEMOGLOBIN 30.9 pg (27.0-31.0); MEAN CORPUSCULAR HGB CONC 32.1 g/dL (32.0-36.0); MEAN CORPUSCULAR VOLUME 96.2 fL (80.0-94.0); MEAN PLATELET VOLUME 8.5 fL (7.4-11.4); MONOCYTES # (AUTO) 0.7 10^3/uL (0.0-1.0); MONOCYTES % (AUTO) 11.4 %; NEUTROPHILS # (AUTO) 4.1 10^3/uL (1.5-6.6); NEUTROPHILS % (AUTO) 71.9 %; PLT - PLATELET COUNT 308 10^3/uL (130-450); RED BLOOD COUNT 4.47 10^6/uL (4.70-6.10); RED CELL DISTRIBUTION WIDTH 13.3 % (12.0-15.0); WHITE BLOOD COUNT 5.7 x10^3/uL (4.8-10.8)
--- OUTSIDE RECORDS SUMMARY | 2021-02-26 09:36 | EXTERNAL MEDICAL SUMMARY RPT | Continuity of Care Document ---
:1940 Demographics Phone Unavailable Preferred Language Citizen Of [place] Marital Status Unknown Amish Affiliation Unknown Race Unknown Ethnic Group Unknown Author Organization [place] Address [address] [phone] Phone Care Team Providers Name Role Phone Tyler Carson Unavailable Unavailable Problems date description facility [id number] Spinal stenosis, lumbar region with [facility] claudication
[2021-02-26 09:39] LABS: ALBUMIN 4.2 g/dL (3.2-5.5); ALBUMIN/GLOBULIN RATIO 1.2 (1.0-2.2); BILIRUBIN,TOTAL 0.4 mg/dL (0.2-1.0); CALCIUM 9.6 mg/dL (8.5-10.3); CREATININE 1.2 mg/dL (0.6-1.2); TOTAL PROTEIN 7.6 g/dL (6.7-8.2)
--- NOTE | 2021-02-26 09:44 | XRAY Report ---
PROCEDURE: Chest 1 View X-Ray INDICATIONS: Chest Pain TECHNIQUE: One view of the chest was acquired. COMPARISON: None FINDINGS: Surgical changes and devices: None. Lungs and pleura: No pleural effusions or pneumothorax. Lungs are clear. Mediastinum: Mediastinal contours appear normal. Heart size is normal. Bones and chest wall: No suspicious bony lesions. Overlying soft tissues appear unremarkable. IMPRESSION: Portable chest within normal limits for age. Reviewed by: Joce Lilly MD on 02/26/2021 8:43 AM [facility] Approved by: Joce Lilly MD on 02/26/2021 8:43 AM [facility] Station ID: [id number]
[2021-02-26] MEDS ORDERED: LACTATED RINGERS 1,000 ML IV STA (10:17)
[2021-02-26] MEDS ORDERED: IOPAMIDOL-300 100 ML VIAL ONE (10:41)
[2021-02-26] MEDS ORDERED: IOPAMIDOL-300 100 ML VIAL IVP ONE (11:10)
--- NOTE | 2021-02-26 11:22 | CT Report ---
PROCEDURE: ANGIO CHEST W/WO INDICATIONS: Elevated d-dimer, new onset atrial fibrillation CONTRAST: IV CONTRAST: Isovue 300 ml: 80 PO CONTRAST: *NO PO CONTRAST TECHNIQUE: After the administration of intravenous contrast, 2 mm thick sections acquired from the pulmonary api marty to the posterior costophrenic angles. 3-dimensional maximum intensity projection (MIP) coronal a nd sagittal reformats were then acquired through the thorax. For radiation dose reduction, the follow ing was used: automated exposure control, adjustment of mA and/or kV according to patient size. COMPARISON: Dec 09, 2017 CT angiogram chest FINDINGS: Image quality: Excellent. Pulmonary arteries: No pulmonary artery filling defect to indicate pulmonary embolism. Normal caliber main pulmonary trunk. Lungs and pleura: Lungs are clear. No pleural effusions or pneumothorax. Central and peripheral ai rways are patent. Mediastinum: The heart is mildly enlarged. No pericardial effusion. There is a four-vessel coronary a therosclerosis. The aortic root is again mildly dilated, without significant change from 12/09/2017 ex am. Atherosclerotic calcifications in the aorta are similar. Metatarsals enlarged mediastinal or alissa r lymph node. Bones and chest wall: No suspicious lytic or blastic chest wall lesion. Abdomen: Visualized upper abdominal solid organs appear normal in the early arterial phase of enhanc ement. IMPRESSION: No pulmonary embolism or other acute finding in the chest. Reviewed by: Reed Landon MD on 02/26/2021 11:21 AM PDT Approved by: Reed Landon MD on 02/26/2021 11:21 AM PDT Station ID: [id number]
[2021-02-26] MEDS ORDERED: SODIUM CHLORIDE FLUSH 0.9% 10 ML SYRINGE IVP PRN (12:00)
--- NOTE | 2021-02-26 12:08 | HISTORY & PHYSICAL EXAMINATION ---
Chief Complaint - Chief Complaint Chief Complaint: "chest felt weird/empty" History of Present Illness - Admitted From Admitted From:: [facility] ED - History Obtained From Records Reviewed: yes History obtained from: patient - History of Present Illness HPI Comment/Other: 80-year-old male with medical history significant for hypertension and recent L4 compression fracture after falling off a ladder who presented to the ED today with chief complaint of his chest feeling weird/empty. When this feeling started this morning he decided to take his blood pressure however he is home machine will not give a reading and kept reporting an error message. As a result he decided to present to the ED for evaluation. He was not experiencing dizziness or lightheadedness at the time. He also denied dyspnea or chest pain. In the ED he was noted to be in atrial fibrillation/flutter with heart rate as high as 146. He was given a dose of metoprolol IV 5 mg x 1 which improved his heart rate to about 75. He was presented for admission for further work-up. Initial troponin was negative. Repeat EKG after heart rate control raise concern for ischemic disease. The patient had a stress echocardiogram done in October 2019 which was interpreted to have a moderate to high risk of ischemia. He follow-up with his primary care physician who made referral for cardiology follow-up in [place]. It appears the patient did not see cardiology. At bedside he appears comfortable. He denies chest pain, dyspnea, abdominal pain, nausea, fever or chills. He reports lower back pain from his fall. 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 History - Past Medical History Cardiovascular: reports: Hypertension Musculoskeletal: reports: Osteoarthritis MRSA Hx?: No - Past Surgical History Other past surgical history: Denies any past surgical history. - Family & Social History Family History Comment/Other: His son has diabetes. His father from heart disease. He was also diabetic. Social History Notes: He lives alone. He has 2 sons. He was originally from [place]. He has a history of smoking cigarettes for 30+ years, on average 1 to 1-1/2 pack/day. He quit smoking in 1978. He also used to drink heavily but now only drinks a glass of wine daily. He denies any recreational drug use. - POLST Patient has POLST: No POLST Status: Full Code Meds/Allgy - Home Medications Home Medications: Ambulatory Orders Medication Instructions Recorded Confirmed Gabapentin [Neurontin] 300 mg PO QPM 02/26/21 02/26/21 Hydrocodone/Acetaminophen 1 each PO DAILY PRN 02/26/21 02/26/21 [Hydrocodone-Acetamin 5-300 mg] Losartan [Cozaar] 50 mg PO DAILY 02/26/21 02/26/21 Metoprolol Succinate [Toprol Xl] 100 mg PO DAILY 02/26/21 02/26/21 traMADol [Ultram] 1 tab PO PRN PRN 02/26/21 02/26/21 - Allergies Allergies/Adverse Reactions: Allergies Allergy/AdvReac Type Severity Reaction Status Date / Time No Known Drug Allergies Allergy Verified 02/26/21 08:59 Review of Systems - Constitutional Constitutional: denies: Fatigue, Fever, Chills, Weakness, Poor appetite, Diap horesis - Eyes Eyes: denies: Pain, Vision loss, Dipolpia - Ears, Nose & Throat Ears, Nose & Throat: denies: Ear pain, Sore throat - Cardiovascular Cariovascular: reports: Irregular heart rate. denies: Palpitations, Chest pain, Edema, Lightheadedness, Syncope, Exertional dyspnea - Respiratory Respiratory: denies: Cough, Sputum production, Wheezing, SOB at rest, SOB with exertion - Gastrointestinal Gastrointestinal: denies: Abdominal pain, Abdominal distention, Constipation, Diarrhea, Nausea, Vomiting, Coffee grounds emesis, Reflux/heartburn - Genitourinary Genitourinary: denies: Dysuria, Frequency, Urgency, Hematuria, Incontinence - Musculoskeletal Musculoskeletal: denies: Muscle pain, Back pain, Muscle aches - Integumentary Integumentary: denies: Rash, Pruritis, Lesions, Dryness - Neurological Neurological: denies: General weakness, Focal weakness, Headache, Dizziness - Psychiatric Psychiatric: denies: Depression, Anxiety - Endocrine Endocrine: denies: Polyuria, Polydypsia - Hematologic/Lymphatic Hematologic/Lymphatic: denies: Anemia, Bruising, Petechiae Prior Level of Functionality: Dependent of activities of daily living. 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 He would not be directly involved in caring for the animals. Exam - Vital Signs Vital Signs: Vital Signs x48h Temp Pulse Resp BP Pulse Ox 02/26/21 10:15 76 12 140/77 H 99 02/26/21 09:49 75 11 L 149/78 H 99 02/26/21 09:33 75 11 L 152/84 H 99 02/26/21 09:27 98 15 159/73 H 99 02/26/21 09:00 36.4 C L 146 H 20 139/118 H 100 - Physical Exam General Appearance: positive: Alert, Moderate distress (back pain) Eyes Bilateral: positive: PERRL, EOMI ENT: positive: No signs of dehydration Neck: positive: No JVD, Trachea midline Respiratory: positive: Chest non-tender, No respiratory distress, Breath sounds nml. negative: Wheezes, Rales, Rhonchi Cardiovascular: positive: No murmur, Irregularly irregular Abdomen: positive: Non-tender, No organomegaly, Nml bowel sounds, No distention. negative: Guarding, Rebound Back: positive: Nml inspection Skin: positive: Color nml, No rash, Warm, Dry Extremities: positive: Non-tender, Full ROM, Nml appearance, No pedal edema Neurologic/Psychiatric: positive: Oriented x3, Mood/affect nml Conclusion/Plan - Problem List (1) Atrial flutter Conclusion/Plan: With rapid ventricular rhythm. Patient's heart rate was as high as 146. Patient was given a dose of metoprolol 5 mg IV in the ED x1 which improved his heart rate to about 75. We will continue metoprolol succinate 25 mg p.o. daily to start now. Upon discharge we will switch patient from metoprolol tartrate to metoprolol succinate. 2D echocardiogram in the morning. Patient's Eyal vasc score was 4 for Age, Hypertension and coronary artery disease Indication would be to start the patient on an anticoagulant. Plan would be to start Eliquis 5 mg p.o. twice daily upon discharge. (2) Abnormal EKG Conclusion/Plan: Patient has an abnormal EKG with poor R wave progressions. He had a stress echocardiogram done on 11/12/2019 which was abnormal and showed a cardiac risk which was moderate to high. The echocardiogram at the time was negative for any regional wall motion abnormality. He had an estimated left ventricular ejection fraction of 60%. Dilated aortic root and ascending aorta with mild to moderate aortic regurgitation was noted. The patient had referral to cardiology with Clay Foley. It appears he did not keep the appointment We will work on making another referral with the same group. I emphasized to the patient that it was very important for him to follow-up with cardiology. He expressed understanding. (3) Hypertension Conclusion/Plan: On metoprolol succinate. Qualifiers: Hypertension type: essential hypertension Qualified Code(s): I10 - Essential (primary) hypertension (4) Back pain at L4-L5 level Conclusion/Plan: The patient sustained an L4 compression fracture after falling off a ladder over the . He is on Lerona, tramadol, gabapentin and Flexeril as needed. - Lab Results Fish Bones: 02/26/21 09:10 02/26/21 09:10 Core Measures - Anticipated LOS I expect patient to be DC'd or transferred within 96 hours.: Yes - DVT/VTE - Prophylaxis VTE/DVT Device ordered at admit?: Yes VTE/DVT Prophylaxis med ordered at admit?: Yes
--- OUTSIDE RECORDS SUMMARY | 2021-02-26 12:32 | EXTERNAL MEDICAL SUMMARY RPT | Continuity of Care Document ---
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
--- NOTE | 2021-02-26 13:03 | ED Physician Documentation ---
History of Present Illness - Stated complaint Stated Complaint: WEAKNESS - Chief complaint Chief Complaint: Cardiac - History obtained from History obtained from: Patient - Additonal information Additional information: 80-year-old man with past medical history of high blood pressure presents with new onset atrial fibrillation on EMT EKG. He states that he has been having palpitations on and off and was feeling lightheaded this morning therefore called EMS. Denies chest pain, shortness of breath, nausea, diaphoresis, cough, fever. Did have some leg swelling this week that has gone down. Review of Systems Ten Systems: 10 systems reviewed and negative Constitutional: denies: Fever, Chills Cardiac: reports: Palpitations. denies: Chest pain / pressure Respiratory: denies: Dyspnea PD PAST MEDICAL HISTORY - Past Medical History Past Medical History: Yes Cardiovascular: Hypertension Musculoskeletal: Osteoarthritis - Past Surgical History Past Surgical History: No - Present Medications Home Medications: Ambulatory Orders Medication Instructions Recorded Confirmed Gabapentin [Neurontin] 300 mg PO QPM 02/26/21 02/26/21 Hydrocodone/Acetaminophen 1 each PO DAILY PRN 02/26/21 02/26/21 [Hydrocodone-Acetamin 5-300 mg] Losartan [Cozaar] 50 mg PO DAILY 02/26/21 02/26/21 Metoprolol Succinate [Toprol Xl] 100 mg PO DAILY 02/26/21 02/26/21 traMADol [Ultram] 1 tab PO PRN PRN 02/26/21 02/26/21 - Allergies Allergies/Adverse Reactions: Allergies Allergy/AdvReac Type Severity Reaction Status Date / Time No Known Drug Allergies Allergy Verified 02/26/21 08:59 - Social History Does the pt smoke?: No Smoking Status: Never smoker Does the pt drink ETOH?: Yes Does the pt have substance abuse?: No - Immunizations Immunizations are current?: No Immunizations: TDAP >10years/unknown PD ED PE NORMAL - Vitals Vital signs reviewed: Yes - General General: Alert and oriented X 3, No acute distress, Well developed/nourished - HEENT HEENT: Atraumatic, PERRL, EOMI - Neck Neck: Supple, no meningeal sign - Cardiac Cardiac: Other (tachycardic rate, regular rhythm) - Respiratory Respiratory: No respiratory distress, Clear bilaterally - Abdomen Abdomen: Non tender, Non distended - Derm Derm: Normal color - Extremities Extremities: No deformity - Neuro Neuro: Alert and oriented X 3 - Psych Psych: Normal mood, Normal affect Results - Vitals Vitals: Vital Signs - 24 hr 02/26/21 02/26/21 02/26/21 09:00 09:27 09:33 Temperature 36.4 C L Heart Rate 146 H 98 75 Respiratory 20 15 11 L Rate Blood Pressure 139/118 H 159/73 H 152/84 H O2 Saturation 100 99 99 02/26/21 02/26/21 09:49 10:15 Temperature Heart Rate 75 76 Respiratory 11 L 12 Rate Blood Pressure 149/78 H 140/77 H O2 Saturation 99 99 Oxygen O2 Source Room air - Labs Labs: Laboratory Tests 02/26/21 02/26/21 02/26/21 09:10 09:10 09:10 WBC 5.7 RBC 4.47 L Hgb 13.8 L Hct 43.0 MCV 96.2 H MCH 30.9 MCHC 32.1 RDW 13.3 Plt Count 308 MPV 8.5 Neut # (Auto) 4.1 Lymph # (Auto) 0.8 L Taylor # (Auto) 0.7 Eos # (Auto) 0.1 Baso # (Auto) 0.0 Absolute Nucleated RBC 0.00 Nucleated RBC % 0.0 D-Dimer Sodium 135 Potassium 4.0 Chloride 97 L Carbon Dioxide 27 Anion Gap 11.0 BUN 19 Creatinine 1.2 Estimated GFR (MDRD) 58 L Glucose 100 Calcium 9.6 Total Bilirubin 0.4 AST 21 ALT 18 Alkaline Phosphatase 80 Troponin I High Sens 19.2 B-Natriuretic Peptide Total Protein 7.6 Albumin 4.2 Globulin 3.4 Albumin/Globulin Ratio 1.2 Lipase 33 02/26/21 02/26/21 09:10 09:10 WBC RBC Hgb Hct MCV MCH MCHC RDW Plt Count MPV Neut # (Auto) Lymph # (Auto) Taylor # (Auto) Eos # (Auto) Baso # (Auto) Absolute Nucleated RBC Nucleated RBC % D-Dimer 339.2 H Sodium Potassium Chloride Carbon Dioxide Anion Gap BUN Creatinine Estimated GFR (MDRD) Glucose Calcium Total Bilirubin AST ALT Alkaline Phosphatase Troponin I High Sens B-Natriuretic Peptide 241 H Total Protein Albumin Globulin Albumin/Globulin Ratio Lipase PD MEDICAL DECISION MAKING - ED course ED course: Patient with new onset atrial fibrillation with CT for pulmonary embolism noncontributory. He does have an elevated BNP therefore we will admit to observation for echocardiogram. [id number] 3 therefore he will benefit from anticoagulation. Discussed with And show to. Departure - Departure Disposition: ED Place in Observation Clinical Impression: Atrial flutter, Elevated brain natriuretic peptide (BNP) level Condition: Stable
[2021-02-26 13:26] LABS: B. PARAPERTUSSIS- RESP PCR PAN NOT DETECTED; B. PERTUSSIS- RESP PCR PANEL NOT DETECTED; C. PNEUMONIAE- RESP PCR PANEL NOT DETECTED; CORONAVIRUS 229E-RESP PCR NOT DETECTED; CORONAVIRUS HKU1-RESP PCR NOT DETECTED; CORONAVIRUS NL63-RESP PCR NOT DETECTED; CORONAVIRUS OC43-RESP PCR NOT DETECTED; HUMAN METAPNEUMOVIRUS NOT DETECTED; INFLUENZA A- RESP PCR PANEL NOT DETECTED; INFLUENZA B - RESP PCR PANEL NOT DETECTED; M. PNEUMONIAE- RESP PCR PANEL NOT DETECTED; PARAINFLUENZA VIRUS 1 NOT DETECTED; PARAINFLUENZA VIRUS 2 NOT DETECTED; PARAINFLUENZA VIRUS 3 NOT DETECTED; PARAINFLUENZA VIRUS 4 NOT DETECTED; RHINOVIRUS/ENTEROVIRUS NOT DETECTED; RSV- RESP PCR PANEL NOT DETECTED; SARS-CoV-2 -RESP PCR PANEL NOT DETECTED
[2021-02-26] MEDS: ACETAMINOPHEN 325 MG TABLET PO PRN ×3 (14:00→22:37)
[2021-02-26] MEDS: METOPROLOL SUCCINATE 25 MG TABLET PO SCH (14:01)
[2021-02-26] MEDS: SODIUM CHLORIDE FLUSH 0.9% 10 ML SYRINGE IVP SCH (16:46)
[2021-02-26] MEDS: HYDROcod/ACETAM 5/325 MG TABLET PO PRN (20:59)
[2021-02-26] MEDS ORDERED: METOPROLOL 5 MG/5 ML VIAL IVP PRN (22:46)
[2021-02-26] MEDS ORDERED: METOPROLOL SUCCINATE 25 MG TABLET PO ONE (23:45)
[2021-02-27] MEDS: HYDROcod/ACETAM 5/325 MG TABLET PO PRN ×3 (00:44→10:51)
[2021-02-27] MEDS: SODIUM CHLORIDE FLUSH 0.9% 10 ML SYRINGE IVP SCH ×3 (06:21→17:02)
[2021-02-27] MEDS: ACETAMINOPHEN 325 MG TABLET PO PRN (07:40)
[2021-02-27] MEDS ORDERED: ENOXAPARIN 40 MG/0.4 ML SYRINGE SUBQ SCH (09:00)
[2021-02-27] MEDS: METOPROLOL SUCCINATE 25 MG TABLET PO SCH (09:23)
--- NOTE | 2021-02-27 12:26 | DISCHARGE SUMMARY ---
Discharge Summary Admit Date: 02/26/21 Discharge Date: 02/27/21 Discharging Provider: Triny Brown Primary Care Provider: Tyler Carson Condition at Discharge: Stable Discharge Disposition: 01 Home, Self Care - DIAGNOSES Admission Diagnoses: Atrial flutter Abnormal EKG Hypertension Back pain L4-L5 level Discharge Diagnoses with Status of Each Condition: Atrial flutter: New onset. Rate controlled. Continue Toprol. Started on Xarelto 20mg po daily. Abnormal EKG: Stress echocardiogram done in October 2019 showed moderate to high cardiac risk. Follow-up with [facility] on Saturday03/03/21 as planned Hypertension: Chronic continue Toprol. Back pain L4-L5 level: Acute secondary to an L4 compression fracture. Continue taking pain medications prn. - HPI History of Present Illness: 80-year-old male with medical history significant for hypertension and recent L4 compression fracture after falling off a ladder who presented to the ED today with chief complaint of his chest feeling weird/empty. When this feeling started this morning he decided to take his blood pressure however he is home machine will not give a reading and kept reporting an error message. As a result he decided to present to the ED for evaluation. He was not experiencing dizziness or lightheadedness at the time. He also denied dyspnea or chest pain. In the ED he was noted to be in atrial fibrillation/flutter with heart rate as high as 146. He was given a dose of metoprolol IV 5 mg x 1 which improved his heart rate to about 75. He was presented for admission for further work-up. Initial troponin was negative. Repeat EKG after heart rate control raise concern for ischemic disease. The patient had a stress echocardiogram done in October 2019 which was interpreted to have a moderate to high risk of ischemia. He follow-up with his primary care physician who made referral for cardiology follow-up in [place]. It appears the patient did not see cardiology. At bedside he appears comfortable. He denies chest pain, dyspnea, abdominal pain, nausea, fever or chills. He reports lower back pain from his fall. 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 - HOSPITAL COURSE Hospital Course: Patient was treated with a dose of metoprolol tartrate 5 mg IV x1 in the ED whic h improved his heart rate to 75. He was monitored through the night. Around 8:30 PM he became tachycardic again with a heart rate as high as 110. He was given another dose of metoprolol succinate 25 mg p.o. x1. His heart rate again improved to 70's Around 11:30 AM on 02/27/2021 the patient again became tachycardic with a heart rate as high as 147. He had received 25 mg of metoprolol succinate around 9 AM. Around noon he was given metoprolol tartrate 5 mg IV x1 and then another metoprolol succinate 75 mg p.o. This is because at home the patient takes metoprolol succinate 100 mg p.o. daily The patient has a Eyal vas score of four for age, hypertension and coronary artery disease. As a result he was prescribed Xarelto 20 mg po daily upon discharge. The echocardiogram done today showed the left ventricular size is normal. Mild concentric left ventricular hypertrophy. Overall left ventricular systolic function is normal with an ejection fraction of 60 to 65%. Diastolic G and subtle regional wall motion abnormalities are difficult to assess in the presence of arrhythmia. No obvious regional wall motion abnormality was seen. The right ventricle is normal in size and function. Moderate to severe increase in the left atrial volume index. There was no evidence of aortic stenosis. There is mild aortic regurgitation. The RVSP at rest is 44 mmHg. No mass or thrombus identified. There was no pleural effusion noted. He had a stress echocardiogram done on 11/12/2019 which was abnormal and showed a cardiac risk which was moderate to high. Since then he had not followed up with cardiology. As a result a referral has been made for follow-up with [facility] cardiology in [place] on 03/03/2021. He will see Laureano Loredo - ALLERGIES Allergies/Adverse Reactions: Allergies Allergy/AdvReac Type Severity Reaction Status Date / Time No Known Drug Allergies Allergy Verified 02/26/21 08:59 - MEDICATIONS Home Medications: Ambulatory Orders Medication Instructions Recorded Confirmed Gabapentin [Neurontin] 300 mg PO QPM 02/26/21 02/26/21 Hydrocodone/Acetaminophen 1 each PO DAILY PRN 02/26/21 02/26/21 [Hydrocodone-Acetamin 5-300 mg] Losartan [Cozaar] 50 mg PO DAILY 02/26/21 02/26/21 Metoprolol Succinate [Toprol Xl] 100 mg PO DAILY 02/26/21 02/26/21 traMADol [Ultram] 1 tab PO PRN PRN 02/26/21 02/26/21 Rivaroxaban [Xarelto] 20 mg PO QPM 30 Days #30 tablet 02/27/21 - PHYSICAL EXAM AT DISCHARGE General Appearance: positive: Alert, Moderate distress (Back pain) Eyes Bilateral: positive: PERRL, EOMI ENT: positive: No signs of dehydration Neck: positive: No JVD, Trachea midline Respiratory: positive: Chest non-tender, No respiratory distress, Breath sounds nml. negative: Wheezes, Rales, Rhonchi Cardiovascular: positive: No murmur, Irregularly irregular Abdomen: positive: Non-tender, No organomegaly, Nml bowel sounds, No distention. negative: Guarding, Rebound Back: positive: Other (Tenderness with movement) Skin: positive: Color nml, No rash, Warm Extremities: positive: Non-tender, Full ROM, Nml appearance, No pedal edema Neurologic/Psychiatric: positive: Oriented x3, Mood/affect nml - LABS Result Diagrams: 02/26/21 09:10 02/26/21 09:10 - TIME SPENT Time Spent in Discharge (Minutes): 25
--- NOTE | 2021-02-27 12:32 | Discharge Plan ---
Discharge Plan Problem Reviewed?: Yes Disposition: Home, Self Care Condition: Stable Prescriptions: Rivaroxaban [Xarelto] 20 mg PO QPM 30 Days #30 tablet Diet: Cardiac Activity Restrictions: Activity as Tolerated Instruction Topics: Atrial Fibrillation Dc, Atrial Fibrillation Health Concerns: You presented to the ED with a complaint of your chest feeling weird. Work-up showed that you had atrial flutter/Fibrillation with a rapid ventricular rhythm. You were Prolonged IV x1 in the ED which controlled your heart rate. You were admitted for further work-up which included a 2D echocardiogram. This was done and noted to be unremarkable. You had an ejection fraction of 65 to 70%. You are metoprolol succinate 100mg po daily Due to an increased risk of stroke with atrial fibrillation you would need to be on the blood thinner. As a result you will start Xarelto 20 mg p.o. daily. You had A stress echocardiogram done in October 2019 which showed a moderate to high cardiac risk. EKG done during this hospital stay also raised concern for ischemic disease. As a result an outpatient cardiology referral has been made for Saturday02/18/21 [facility]. You would see someone by name Laureano Loredo. You will be evaluated for the possibility of cardiac cath. The above was explained to you and you are in agreement with the plan. Plan of Treatment: You presented to the ED with a complaint of your chest feeling weird. Work-up showed that you had atrial flutter/Fibrillation with a rapid ventricular rhythm. You were Prolonged IV x1 in the ED which controlled your heart rate. You were admitted for further work-up which included a 2D echocardiogram. This was done and noted to be unremarkable. You had an ejection fraction of 65 to 70%. You are metoprolol succinate 100mg po daily Due to an increased risk of stroke with atrial fibrillation you would need to be on the blood thinner. As a result you will start taking Xarelto 20 mg p.o. daily. You had A stress echocardiogram done in October 2019 which showed a moderate to high cardiac risk. EKG done during this hospital stay also raised concern for ischemic disease. As a result an outpatient cardiology referral has been made for Saturday02/18/21 [facility]. You would see someone by name Laureano Loredo. You will be evaluated for the possibility of cardiac cath. The above was explained to you and you are in agreement with the plan. Care Goals: You presented to the ED with a complaint of your chest feeling weird. Work-up showed that you had atrial flutter/Fibrillation with a rapid ventricular rhythm. You were Prolonged IV x1 in the ED which controlled your heart rate. You were admitted for further work-up which included a 2D echocardiogram. This was done and noted to be unremarkable. You had an ejection fraction of 65 to 70%. You are metoprolol succinate 100mg po daily Due to an increased risk of stroke with atrial fibrillation you would need to be on the blood thinner. As a result you will start taking Xarelto 20 mg p.o. daily. You had A stress echocardiogram done in October 2019 which showed a moderate to high cardiac risk. EKG done during this hospital stay also raised concern for ischemic disease. As a result an outpatient cardiology referral has been made for Saturday02/18/21 [facility] in [place]. You would see someone by name Laureano Loredo. You will be evaluated for the possibility of cardiac cath. The above was explained to you and you are in agreement with the plan. Assessment: You presented to the ED with a complaint of your chest feeling weird. Work-up showed that you had atrial flutter/Fibrillation with a rapid ventricular rhythm. You were Prolonged IV x1 in the ED which controlled your heart rate. You were admitted for further work-up which included a 2D echocardiogram. This was done and noted to be unremarkable. You had an ejection fraction of 65 to 70%. You are metoprolol succinate 100mg po daily Due to an increased risk of stroke with atrial fibrillation you would need to be on the blood thinner. As a result you will start taking Xarelto 20 mg p.o. daily. You had A stress echocardiogram done in October 2019 which showed a moderate to high cardiac risk. EKG done during this hospital stay also raised concern for ischemic disease. As a result an outpatient cardiology referral has been made for Saturday02/18/21 [facility] in [place]. You would see someone by name Laureano Facundo. You will be evaluated for the possibility of cardiac cath. The above was explained to you and you are in agreement with the plan. No Smoking: If you smoke, Please STOP! Call for help. Follow-up with: Tyler Carson MD [Primary Care Provider] -
[2021-02-27] MEDS ORDERED: METOPROLOL SUCCINATE 25 MG TABLET PO STA (12:50)
[2021-02-27] MEDS ORDERED: METOPROLOL SUCCINATE 50 MG TABLET PO SCH (13:00)
[2021-02-27] MEDS ORDERED: HYDROmorphone 2 MG TABLET PO PRN (14:48)
[2021-02-27] MEDS ORDERED: METOPROLOL 5 MG/5 ML VIAL IVP STA (16:46)
[2021-02-27] MEDS ORDERED: diltiaZEM INJ 5 MG/ML VIAL IVP ONE (17:36)
[2021-02-27] MEDS ORDERED: KETOROLAC 30 MG/ML VIAL IVP STA (17:36)
[2021-02-27 19:20] VITALS: BP 155/66
== END 2021-02-27 18:56 | disposition home or self-care (01) ==
LOC: ED 08:56 → MS2 12:00
PROVIDERS: ADMIT Internal Medicine; ATTEND Internal Medicine
DX: I48.92 Unspecified atrial flutter (principal); I48.91 Unspecified atrial fibrillation; I10 Essential (primary) hypertension; R94.31 Abnormal electrocardiogram [ECG] [EKG]; S32.049D Unspecified fracture of fourth lumbar vertebra, subsequent encounter for fracture with routine healing; I25.10 Atherosclerotic heart disease of native coronary artery without angina pectoris; Z87.891 Personal history of nicotine dependence; Z20.822 Contact with and (suspected) exposure to COVID-19; Z79.899 Other long term (current) drug therapy
CPT/HCPCS: 36415; 71045; 71275; 80053; 83690; 83880; 84484; 85025; 85379; 87631; 93005; 93306; 96372; 96374; 96375; 96376; 99284; 99285; A9270; G0378; J1650; J7120; Q9967; 0202U

== ENCOUNTER 2021-03-15 15:50 | Emergency (ER) | payer MEDICARE, OTHER ==
--- OUTSIDE RECORDS SUMMARY | 2021-03-15 15:53 | EXTERNAL MEDICAL SUMMARY RPT | Continuity of Care Document ---
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
--- OUTSIDE RECORDS SUMMARY | 2021-03-15 16:06 | EXTERNAL MEDICAL SUMMARY RPT | Continuity of Care Document ---
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
[2021-03-15] MEDS ORDERED: METOPROLOL 5 MG/5 ML VIAL IVP STA ×2 (16:20→17:13)
--- NOTE | 2021-03-15 16:24 | ED Physician Documentation ---
History of Present Illness - Stated complaint Stated Complaint: RAPID HR - Chief complaint Chief Complaint: Cardiac - History obtained from History obtained from: Patient - Additonal information Additional information: 80-year-old gentleman was admitted here early this month for new onset rapid atrial fibrillation. He had a positive stress test last year but reportedly did not follow-up with cardiology. On discharge from here on February 27 he was prescribed metoprolol, he is currently taking a dose of 100 mg of long-acting metoprolol in the morning and 50 mg at night. He was discharged on Xarelto, but did not fill the prescription due to cost. He is not currently anticoagulated. He was seeing his spine surgeon today who referred him to the 150. This is relatively asymptomatic. There is no associated chest pain or shortness of breath. He notes about a week's worth of mild pitting pedal edema. Review of Systems Ten Systems: 10 systems reviewed and negative Cardiac: denies: Chest pain / pressure, Palpitations Respiratory: denies: Dyspnea, Cough PD PAST MEDICAL HISTORY - Past Medical History Cardiovascular: Hypertension Respiratory: None Neuro: None Endocrine/Autoimmune: None GI: None Psych: None Musculoskeletal: Osteoarthritis Derm: None - Past Surgical History Past Surgical History: No General: Appendectomy, Colonoscopy Derm: Skin cancer surgery - Present Medications Home Medications: Ambulatory Orders Medication Instructions Recorded Confirmed Gabapentin [Neurontin] 300 mg PO BID 02/26/21 03/15/21 Losartan [Cozaar] 50 mg PO DAILY 02/26/21 03/15/21 Metoprolol Succinate [Toprol Xl] 100 mg PO BID 02/26/21 03/15/21 Rivaroxaban [Xarelto] 20 mg PO QPM 30 Days #30 tablet 02/27/21 Metoprolol Succinate [Toprol Xl] 100 mg PO BID #60 tablet 03/15/21 Rivaroxaban [Xarelto] 20 mg PO DAILY #30 tablet 03/15/21 - Allergies Allergies/Adverse Reactions: Allergies Allergy/AdvReac Type Severity Reaction Status Date / Time No Known Drug Allergies Allergy Verified 03/15/21 15:59 - Social History Does the pt smoke?: No Smoking Status: Former smoker Does the pt drink ETOH?: Yes Does the pt have substance abuse?: No - Immunizations Immunizations are current?: No Immunizations: TDAP >10years/unknown - POLST Patient has POLST: No POLST Status: Full Code PD ED PE NORMAL - Vitals Vital signs reviewed: Yes - General General: Alert and oriented X 3, No acute distress - HEENT HEENT: PERRL, EOMI - Neck Neck: Supple, no meningeal sign, No bony TTP - Cardiac Cardiac: Other (Rapid and irregular, mixture of fib and flutter on the monitor.) - Respiratory Respiratory: No respiratory distress, Clear bilaterally - Abdomen Abdomen: Non tender - Back Back: No CVA TTP, No spinal TTP - Derm Derm: Normal color, Warm and dry - Extremities Extremities: Other (1+ pitting pedal edema) - Neuro Neuro: Alert and oriented X 3, Normal speech Results - Vitals Vitals: Vital Signs - 24 hr 03/15/21 03/15/21 03/15/21 15:59 16:37 16:43 Temperature 36.7 C Heart Rate 140 H 118 H 102 H Respiratory 18 20 14 Rate Blood Pressure 153/84 H 148/101 H 145/80 H O2 Saturation 96 95 95 03/15/21 03/15/21 16:59 17:32 Temperature Heart Rate 112 H 101 H Respiratory 14 19 Rate Blood Pressure 148/101 H 135/90 H O2 Saturation 95 94 Oxygen O2 Source Room air - EKG (time done) 1603 Rate: Rate (enter#) (140) Rhythm: Atrial flutter Intervals: RBBB QRS: LVH Ischemia: Q waves Computer interpretation: Agree with computer - Labs Labs: Laboratory Tests 03/15/21 03/15/21 16:27 16:27 WBC 6.0 RBC 3.69 L Hgb 11.9 L Hct 34.8 L MCV 94.3 H MCH 32.2 H MCHC 34.2 RDW 13.3 Plt Count 243 MPV 8.5 Neut # (Auto) 4.8 Lymph # (Auto) 0.5 L [place] # (Auto) 0.6 Eos # (Auto) 0.0 Baso # (Auto) 0.0 Absolute Nucleated RBC 0.00 Nucleated RBC % 0.0 Sodium 135 Potassium 3.8 Chloride 101 Carbon Dioxide 25 Anion Gap 9.0 BUN 24 H Creatinine 0.8 Estimated GFR (MDRD) 93 Glucose 115 H Calcium 9.0 Magnesium 2.2 PD MEDICAL DECISION MAKING - ED course ED course: 80-year-old gentleman presents with rapid atrial fib and flutter. No clinical evidence of CHF or ischemia. He is administered IV metoprolol. It would not be safe to consider him for chemical or electrical cardioversion given that he is not anticoagulated without a RADHA. Was able to control his tachycardia with 2 doses of IV Lopressor and he remained stable after that. We will increase his metoprolol from 100 mg in the morning and 50 mg at night to 100 mg twice a day pending cardiology follow-up. He is now amenable to starting anticoagulation pending follow-up with the glass technologist. Has an appointment with a glass technologist next week. Departure - Departure Disposition: Home, Self Care Clinical Impression: Atrial flutter Qualifiers: Atrial flutter type: typical Qualified Code(s): I48.3 - Typical atrial flutter Condition: Good Instructions: Atrial Fibrillation Dc Prescriptions: Metoprolol Succinate [Toprol Xl] 100 mg PO BID #60 tablet Rivaroxaban [Xarelto] 20 mg PO DAILY #30 tablet Comments: Follow-up with the glass technologist next week as scheduled. As discussed go up to 100 mg twice a day of your metoprolol. I am writing an extra prescription so you do not run out early. Also strongly recommend that you take the blood thinner at least until you see the glass technologist. Return if worsening.
[2021-03-15 16:32] LABS: BASOPHILS % (AUTO) 0.3 %; EOSINOPHILS % (AUTO) 0.7 %; HCT - HEMATOCRIT 34.8 % (42.0-52.0); HGB - HEMOGLOBIN 11.9 g/dL (14.0-18.0); LYMPHOCYTES # (AUTO) 0.5 10^3/uL (1.5-3.5); LYMPHOCYTES % (AUTO) 7.9 %; MEAN CORPUSCULAR HEMOGLOBIN 32.2 pg (27.0-31.0); MEAN CORPUSCULAR HGB CONC 34.2 g/dL (32.0-36.0); MEAN CORPUSCULAR VOLUME 94.3 fL (80.0-94.0); MEAN PLATELET VOLUME 8.5 fL (7.4-11.4); MONOCYTES # (AUTO) 0.6 10^3/uL (0.0-1.0); MONOCYTES % (AUTO) 10.8 %; NEUTROPHILS # (AUTO) 4.8 10^3/uL (1.5-6.6); NEUTROPHILS % (AUTO) 80.1 %; PLT - PLATELET COUNT 243 10^3/uL (130-450); RED BLOOD COUNT 3.69 10^6/uL (4.70-6.10); RED CELL DISTRIBUTION WIDTH 13.3 % (12.0-15.0)
[2021-03-15 16:42] LABS: CREATININE 0.8 mg/dL (0.6-1.2); MAGNESIUM 2.2 mg/dL (1.7-2.8); POTASSIUM 3.8 mmol/L (3.5-5.0)
[2021-03-15 17:33] VITALS: BP 135/90
== END 2021-03-15 18:08 | disposition home or self-care (01) ==
LOC: ED 15:50
DX: I48.3 Typical atrial flutter (principal); I48.91 Unspecified atrial fibrillation; I45.10 Unspecified right bundle-branch block; R60.0 Localized edema; I10 Essential (primary) hypertension; Z87.891 Personal history of nicotine dependence
CPT/HCPCS: 36415; 80048; 83735; 85025; 93005; 96374; 96376; 99283

== ENCOUNTER 2021-03-26 00:12 | Outpatient (CLI) | payer MEDICARE, OTHER | END 2021-03-26 00:13 | disposition critical access hospital (66) | LOC: EMS 00:12 | DX: R00.2 Palpitations (principal) | CPT/HCPCS: A0425; A0429 ==

== ENCOUNTER 2021-03-26 00:18 | Inpatient (IN) | payer MEDICARE, OTHER ==
--- NOTE | 2021-03-26 00:16 | ED Physician Documentation ---
History of Present Illness - Stated complaint Stated Complaint: RHR - History obtained from History obtained from: Patient, EMS - History of Present Illness Timing: Enter time (19:00), Today Pain level max: 4 Pain level now: 0 Improved by: nitroglycerin Worsened by: exertion - Additonal information Additional information: Patient is brought in by ambulance. He complains of chest discomfort that started at 7 PM tonight while at home at rest. He has difficulty describing the chest discomfort, at times referring to it as pain and other times says it isnt pain but a hollow feeling in his chest. he indicates the sensation is anterior left chest. he denies radiation of the symptom. he was diagnosed a month ago with new onset atrial fibrillation in this ED and was admitted to [facility] overnight for observation and rate control. he was discharged the following day in rate- controlled atrial fibrillation. toprol was continued for rate control and started on xarelto. his echo on that visit (02/26/21) showed EF 60-65%. he had CTA which was negative for PE. he was to follow up with cardiology, [facility] (to be his first meeting with cardiology, as he was not already established with a registered nurse post partum). of note, patient had abnormal stress test October 2019 but did not pursue follow up for this (normal echo portion but ST changes developed during the treadmill portion). he returned to this ED 03/15/21 for ARTIE/flutter; he was at a doctors office for his back pain but was sent to ED when it was noted that his heart rate was 130s bpm. per EDMD note, patient was relatively asymptomatic despite this tachycardic rate. rate was controlled with 5mg lopressor IV x 2 doses. he had not filled his xarelto rx yet, and was instructed to do so and start the xarelto immediately. Patient has started to associate tonights symptom (empty or hollow chest) as associated with his ARTIE. however, he says he has had this symptom, which he intermittently refers to as chest pain, every night for the past week. he notes that it resolves when he takes SLNTG, which he just started taking this past week, noting that the last two or three nights he had to take a second ntg and sometimes a third before symptoms would resolve. he has an appointment scheduled to meet Dr. Ling, [facility] cardiology, in 1-2 weeks. Review of Systems Constitutional: reports: Reviewed and negative Cardiac: reports: Chest pain / pressure, Palpitations, Pedal edema. denies: Calf pain Respiratory: denies: Dyspnea, Cough, Hemoptysis, Wheezing, Reviewed and negative, Other GI: reports: Reviewed and negative : denies: Dysuria, Frequency Skin: denies: Rash Musculoskeletal: reports: Extremity swelling (mild bilateral) Neurologic: reports: Reviewed and negative PD PAST MEDICAL HISTORY - Past Medical History Past Medical History: Yes Cardiovascular: Hypertension, Atrial flutter, Atrial fibrillation Musculoskeletal: Other (back pain due to vertebral fracture) - Past Surgical History Past Surgical History: No - Present Medications Home Medications: Ambulatory Orders Medication Instructions Recorded Confirmed Gabapentin [Neurontin] 900 mg PO QPM 02/26/21 03/26/21 Losartan [Cozaar] 100 mg PO DAILY 02/26/21 03/26/21 Rivaroxaban [Xarelto] 20 mg PO QPM 30 Days #30 tablet 02/27/21 03/26/21 Metoprolol Succinate [Toprol Xl] 100 mg PO BID #60 tablet 03/15/21 03/26/21 Acetaminophen [Tylenol Extra 500 mg PO Q4HR 03/26/21 03/26/21 Strength] Gabapentin [Neurontin] 300 mg PO BID 03/26/21 03/26/21 - Allergies Allergies/Adverse Reactions: Allergies Allergy/AdvReac Type Severity Reaction Status Date / Time No Known Drug Allergies Allergy Verified 03/26/21 00:36 - Living Situation Living Arrangement: reports: At home - Social History Does the pt smoke?: No Does the pt drink ETOH?: No PD ED PE NORMAL - Vitals Vital signs reviewed: Yes - General General: Alert and oriented X 3, No acute distress, Well developed/nourished - HEENT HEENT: Moist mucous membranes - Neck Neck: Supple, no meningeal sign, No JVD - Respiratory Respiratory: No respiratory distress, Clear bilaterally - Abdomen Abdomen: Soft, Non tender - Back Back: No CVA TTP - Derm Derm: Normal color, Warm and dry PD ED PE EXPANDED - Cardiac Cardiac: Tachy, Regular Rhythm - Extremities Extremities: Pedal edema bilateral Results - Vitals Vitals: Vital Signs - 24 hr 03/26/21 03/26/21 03/26/21 00:20 00:30 01:02 Temperature 36.8 C Heart Rate 145 H 145 H 141 H Respiratory 19 18 13 Rate Blood Pressure 127/106 H 138/73 H 140/82 H Blood Pressure 138/73 H [Left] Blood Pressure 137/74 H [Right] O2 Saturation 94 94 94 03/26/21 03/26/21 03/26/21 01:09 01:40 01:52 Temperature Heart Rate 135 H 135 H 137 H Respiratory 15 12 15 Rate Blood Pressure 112/72 115/76 115/76 Blood Pressure [Left] Blood Pressure [Right] O2 Saturation 96 94 94 03/26/21 03/26/21 03/26/21 02:00 02:15 02:30 Temperature 36.8 C Heart Rate 122 H 133 H 135 H Respiratory 14 13 20 Rate Blood Pressure 124/78 119/55 L 111/75 Blood Pressure [Left] Blood Pressure [Right] O2 Saturation 95 96 95 03/26/21 03/26/21 03/26/21 02:53 02:59 03:13 Temperature 36.8 C Heart Rate 135 H 133 H 136 H Respiratory 13 17 12 Rate Blood Pressure 125/74 113/68 102/69 Blood Pressure [Left] Blood Pressure [Right] O2 Saturation 97 95 96 03/26/21 03/26/21 03/26/21 03:27 03:30 03:33 Temperature Heart Rate 137 H 137 H 137 H Respiratory 14 12 13 Rate Blood Pressure 98/52 L 84/70 L 98/62 Blood Pressure [Left] Blood Pressure [Right] O2 Saturation 95 95 95 03/26/21 04:08 Temperature 36.6 C Heart Rate 136 H Respiratory 13 Rate Blood Pressure 103/72 Blood Pressure [Left] Blood Pressure [Right] O2 Saturation 96 Oxygen O2 Source Room air - EKG (time done) No standard instances Rate: Rate (enter#) (143) Rhythm: Atrial flutter, Other (regular rhythm 143 beats per minute without discenable p waves s/o atrial flutter) [place]: LAD QRS: Normal Ischemia: Q waves (V1-V3, III, aVF), Non specific changes - Labs Labs: Laboratory Tests 03/26/21 03/26/21 03/26/21 00:30 00:30 00:30 WBC 6.9 RBC 3.06 L Hgb 9.7 L Hct 29.2 L MCV 95.4 H MCH 31.7 H MCHC 33.2 RDW 12.9 Plt Count 308 MPV 8.6 Neut # (Auto) 5.1 Lymph # (Auto) 0.9 L [place] # (Auto) 0.7 Eos # (Auto) 0.1 Baso # (Auto) 0.0 Absolute Nucleated RBC 0.00 Nucleated RBC % 0.0 Sodium 132 L Potassium 4.7 Chloride 97 L Carbon Dioxide 25 Anion Gap 10.0 BUN 48 H Creatinine 1.0 Estimated GFR (MDRD) 72 L Glucose 121 H Calcium 9.7 Total Bilirubin 0.4 AST 23 ALT 17 Alkaline Phosphatase 70 Troponin I High Sens 22.0 H* Total Protein 6.4 L Albumin 3.6 Globulin 2.8 Albumin/Globulin Ratio 1.3 Lipase 35 Nasal Adenovirus (PCR) Nasal B. parapertussis DNA (PCR) Nasal Coronavir 229E PCR Nasal Coronavir HKU1 PCR Nasal Coronavir NL63 PCR Nasal Coronavir OC43 PCR Nasal Enterovir/Rhinovir PCR Nasal Influenza B PCR Nasal Influenza A PCR Nasal Parainfluen 1 PCR Nasal Parainfluen 2 PCR Nasal Parainfluen 3 PCR Nasal Parainfluen 4 PCR Nasal RSV (PCR) Nasal B.pertussis DNA PCR Nasal C.pneumoniae (PCR) [place] Human Metapneumo PCR Nasal M.pneumoniae (PCR) Nasal SARS-CoV-2 (PCR) 03/26/21 01:35 WBC RBC Hgb Hct MCV MCH MCHC RDW Plt Count MPV Neut # (Auto) Lymph # (Auto) [place] # (Auto) Eos # (Auto) Baso # (Auto) Absolute Nucleated RBC Nucleated RBC % Sodium Potassium Chloride Carbon Dioxide Anion Gap BUN Creatinine Estimated GFR (MDRD) Glucose Calcium Total Bilirubin AST ALT Alkaline Phosphatase Troponin I High Sens Total Protein Albumin Globulin Albumin/Globulin Ratio Lipase Nasal Adenovirus (PCR) NOT DETECTED Nasal B. parapertussis DNA (PCR) NOT DETECTED Nasal Coronavir 229E PCR NOT DETECTED Nasal Coronavir HKU1 PCR NOT DETECTED Nasal Coronavir NL63 PCR NOT DETECTED Nasal Coronavir OC43 PCR NOT DETECTED Nasal Enterovir/Rhinovir PCR NOT DETECTED Nasal Influenza B PCR NOT DETECTED Nasal Influenza A PCR NOT DETECTED Nasal Parainfluen 1 PCR NOT DETECTED Nasal Parainfluen 2 PCR NOT DETECTED Nasal Parainfluen 3 PCR NOT DETECTED Nasal Parainfluen 4 PCR NOT DETECTED Nasal RSV (PCR) NOT DETECTED Nasal B.pertussis DNA PCR NOT DETECTED Nasal C.pneumoniae (PCR) NOT DETECTED [place] Human Metapneumo PCR NOT DETECTED Nasal M.pneumoniae (PCR) NOT DETECTED Nasal SARS-CoV-2 (PCR) NOT DETECTED - Rads (name of study) chest xray Radiology: Prelim report reviewed, See rad report PD MEDICAL DECISION MAKING - ED course Complexity details: reviewed old records, reviewed results, re-evaluated patient, considered differential, d/w patient ED course: given lopressor 5mg IV x 3 doses with intermittent but transient improvement in heartrate; given that the rhythm is predominantly atrial flutter, his improvement would manifest as sudden improvement to 100s bpm (3:1 block) associated with unmasking of flutter waves. his improvement was transient and he would consistently return to 130s-140s heart rate. he has a minimally elevated troponin. he then developed his chest pain that also is a hollow sensation, left lateral chest and thus NTP placed to ACW. I discussed his case with Dr. Yousif (in same group with Dr. Ling); he feels patient would be safe and appropriate for admission to [facility] for further attempts at rate control and observation Departure - Departure Disposition: ED Place in Observation Clinical Impression: Chest pain Qualifiers: Chest pain type: unspecified Qualified Code(s): R07.9 - Chest pain, unspecified Atrial flutter Qualifiers: Atrial flutter type: typical Qualified Code(s): I48.3 - Typical atrial flutter Condition: Good Discharge Date/Time: 03/26/21 05:18
[2021-03-26 00:40] LABS: BASOPHILS % (AUTO) 0.4 %; EOSINOPHILS # (AUTO) 0.1 10^3/uL (0.0-0.7); EOSINOPHILS % (AUTO) 1.7 %; HCT - HEMATOCRIT 29.2 % (42.0-52.0); HGB - HEMOGLOBIN 9.7 g/dL (14.0-18.0); LYMPHOCYTES # (AUTO) 0.9 10^3/uL (1.5-3.5); LYMPHOCYTES % (AUTO) 13.1 %; MEAN CORPUSCULAR HEMOGLOBIN 31.7 pg (27.0-31.0); MEAN CORPUSCULAR HGB CONC 33.2 g/dL (32.0-36.0); MEAN CORPUSCULAR VOLUME 95.4 fL (80.0-94.0); MEAN PLATELET VOLUME 8.6 fL (7.4-11.4); MONOCYTES # (AUTO) 0.7 10^3/uL (0.0-1.0); MONOCYTES % (AUTO) 10.3 %; NEUTROPHILS # (AUTO) 5.1 10^3/uL (1.5-6.6); NEUTROPHILS % (AUTO) 74.2 %; PLT - PLATELET COUNT 308 10^3/uL (130-450); RED BLOOD COUNT 3.06 10^6/uL (4.70-6.10); RED CELL DISTRIBUTION WIDTH 12.9 % (12.0-15.0); WHITE BLOOD COUNT 6.9 x10^3/uL (4.8-10.8)
[2021-03-26 00:56] LABS: ALBUMIN 3.6 g/dL (3.2-5.5); ALBUMIN/GLOBULIN RATIO 1.3 (1.0-2.2); BILIRUBIN,TOTAL 0.4 mg/dL (0.2-1.0); CALCIUM 9.7 mg/dL (8.5-10.3); POTASSIUM 4.7 mmol/L (3.5-5.0); TOTAL PROTEIN 6.4 g/dL (6.7-8.2)
[2021-03-26] MEDS ORDERED: METOPROLOL 5 MG/5 ML VIAL IVP STA ×3 (00:59→02:42)
--- OUTSIDE RECORDS SUMMARY | 2021-03-26 01:31 | EXTERNAL MEDICAL SUMMARY RPT | Continuity of Care Document ---
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
[2021-03-26] MEDS ORDERED: NITROGLYCERIN 2% PASTE TOP STA (02:00)
[2021-03-26 03:01] LABS: B. PARAPERTUSSIS- RESP PCR PAN NOT DETECTED; B. PERTUSSIS- RESP PCR PANEL NOT DETECTED; C. PNEUMONIAE- RESP PCR PANEL NOT DETECTED; CORONAVIRUS 229E-RESP PCR NOT DETECTED; CORONAVIRUS HKU1-RESP PCR NOT DETECTED; CORONAVIRUS NL63-RESP PCR NOT DETECTED; CORONAVIRUS OC43-RESP PCR NOT DETECTED; HUMAN METAPNEUMOVIRUS NOT DETECTED; INFLUENZA A- RESP PCR PANEL NOT DETECTED; INFLUENZA B - RESP PCR PANEL NOT DETECTED; M. PNEUMONIAE- RESP PCR PANEL NOT DETECTED; PARAINFLUENZA VIRUS 1 NOT DETECTED; PARAINFLUENZA VIRUS 2 NOT DETECTED; PARAINFLUENZA VIRUS 3 NOT DETECTED; PARAINFLUENZA VIRUS 4 NOT DETECTED; RHINOVIRUS/ENTEROVIRUS NOT DETECTED; RSV- RESP PCR PANEL NOT DETECTED; SARS-CoV-2 -RESP PCR PANEL NOT DETECTED
[2021-03-26] MEDS ORDERED: ONDANSETRON 4 MG/2 ML VIAL IVP PRN (04:28)
[2021-03-26] MEDS ORDERED: SODIUM CHLORIDE FLUSH 0.9% 10 ML SYRINGE IVP PRN (04:28)
[2021-03-26] MEDS ORDERED: AZITHROMYCIN 250 MG TABLET PO STA (04:32)
--- OUTSIDE RECORDS SUMMARY | 2021-03-26 04:37 | EXTERNAL MEDICAL SUMMARY RPT | Continuity of Care Document ---
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
--- NOTE | 2021-03-26 04:43 | HISTORY & PHYSICAL EXAMINATION ---
Chief Complaint - Chief Complaint Chief Complaint: Chest pain History of Present Illness - Admitted From Admitted From:: ED - History Obtained From History obtained from: ED provider and patient - History of Present Illness HPI Comment/Other: This is a 80-year-old WM with history of new onset of atrial flutter 1 month ago, admitted here had an Echo showing normal LVEF and was discharged on beta- blockers and Xarelto with an appointment to Cardiology. He did not fill the prescription for Xarelto and did not see the [facility]. About a week ago, he was sent to the ER from a surgical office appointment when his heart rate was noted to be 150. In the ER then, he was in atrial flutter with RVR again, was given IV beta-paul several times and had his oral metoprolol dose increased and Xarelto re-prescribed and he was discharged from the ER. Today he presents to the ER with chest pain which is on and off for several hours. He was given 1" of Nitropaste in the ED and hadresolution of chest pain. But, he was al,so found to be in atrial flutter with RVR again. He was given 1 dose of IV beta-paul. The combination of medicine given created hypotension with systolic blood pressure of 89mmHg. The blood pressure has recovered by removing the topical Nitropaste. Other work-up reveals a chest x-ray that shows a new right sided infiltrate. He has no cough or desaturations. The patient is being placed in Observation to start IV Cardizem for rate control and as a vasodilator to treat chest pain and he will be put on antibiotics for a community-acquired pneumonia. History - Past Medical History Cardiovascular: reports: Hypertension Respiratory: reports: None Neuro: reports: None Endocrine/Autoimmune: reports: None GI: reports: None Psych: reports: None Musculoskeletal: reports: Osteoarthritis, Chronic back pain Derm: reports: None MRSA Hx?: No - Past Surgical History General: reports: Appendectomy, Colonoscopy Derm: reports: Skin cancer surgery - Family & Social History Family History Comment/Other: His son has diabetes. His father from heart disease. He was also diabetic. Living arrangement: At home Living Situation: Alone Social History Notes: He lives alone. He has 2 sons. He was originally from [place]. He has a history of smoking cigarettes for 30+ years, on average 1 to 1-1/2 pack/day. He quit smoking in 1978. He also used to drink heavily but now only drinks a glass of wine daily. He denies any recreational drug use. - Substance History Use: Uses substance without health or social issues: NONE - POLST Patient has POLST: No POLST Status: Full Code Meds/Allgy - Home Medications Home Medications: Ambulatory Orders Medication Instructions Recorded Confirmed Gabapentin [Neurontin] 900 mg PO QPM 02/26/21 03/26/21 Losartan [Cozaar] 100 mg PO DAILY 02/26/21 03/26/21 Rivaroxaban [Xarelto] 20 mg PO QPM 30 Days #30 tablet 02/27/21 03/26/21 Metoprolol Succinate [Toprol Xl] 100 mg PO BID #60 tablet 03/15/21 03/26/21 Acetaminophen [Tylenol Extra 500 mg PO Q4HR 03/26/21 03/26/21 Strength] Gabapentin [Neurontin] 300 mg PO BID 03/26/21 03/26/21 - Allergies Allergies/Adverse Reactions: Allergies Allergy/AdvReac Type Severity Reaction Status Date / Time No Known Drug Allergies Allergy Verified 03/26/21 00:36 Review of Systems - Cardiovascular Cariovascular: reports: Irregular heart rate, Palpitations, Chest pain - Musculoskeletal Musculoskeletal: reports: Back pain (He admits to taking maximum dose of Tylenol, frequent aspirin use and prescription Gabapentin for pain control) - All Other Systems All Other Systems: reports: Reviewed and negative Exam - Vital Signs Reviewed Vital Signs: Yes Vital Signs: Vital Signs x48h Temp Pulse Resp BP BP BP Pulse Ox 03/26/21 04:08 36.6 C 136 H 13 103/72 96 03/26/21 03:33 137 H 13 98/62 95 03/26/21 03:30 137 H 12 84/70 L 95 03/26/21 03:27 137 H 14 98/52 L 95 03/26/21 03:13 136 H 12 102/69 96 03/26/21 02:59 133 H 17 113/68 95 03/26/21 02:53 36.8 C 135 H 13 125/74 97 03/26/21 02:30 36.8 C 135 H 20 111/75 95 03/26/21 02:15 133 H 13 119/55 L 96 03/26/21 02:00 122 H 14 124/78 95 03/26/21 01:52 137 H 15 115/76 94 03/26/21 01:40 135 H 12 115/76 94 03/26/21 01:09 135 H 15 112/72 96 03/26/21 01:02 141 H 13 140/82 H 94 03/26/21 00:30 145 H 18 138/73 H 94 03/26/21 00:20 36.8 C 145 H 19 127/106 H 138/73 H 137/74 H 94 - Physical Exam General Appearance: positive: No acute distress, Alert Eyes Bilateral: positive: Normal inspection, PERRL ENT: positive: ENT inspection nml, No signs of dehydration Neck: positive: Nml inspection, No JVD Respiratory: positive: No respiratory distress, Rhonchi (R base) Cardiovascular: positive: Regular rate & rhythm (Tachycardic) Abdomen: positive: Non-tender, Nml bowel sounds, No distention Skin: positive: Warm, Dry Extremities: positive: Non-tender, No pedal edema Neurologic/Psychiatric: positive: Oriented x3 (Non-focal) Conclusion/Plan - Problem List (1) Chest pain Conclusion/Plan: The symptoms sound like angina, not pleuritic as with his pneumonia. We will cycle troponins to rule out MS. We will use Cardizem for both vasodilation and rate control. Starting with IV Cardizem drip then will switch to oral Cardizem at an equal dose. We will continue with his beta-paul. We will give 1 baby aspirin daily but also continue the Xarelto. Will check a fasting lipid panel and treat per guidelines. Qualifiers: Chest pain type: unspecified Qualified Code(s): R07.9 - Chest pain, unspecified (2) Hypotension Conclusion/Plan: Because of his brief hypotension, will place the patient in the ICU Will check troponins x3 to evaluate for an MS as the cause of the hypotension. Will try to avoid Nitropaste, which caused the low BP, therefore Cardizem will be used for both coronary vasodilation and rate control. (3) Atrial flutter with rapid ventricular response Conclusion/Plan: Because of his brief hypotension, will place the patient in the ICU in order to use IV Cardizem, titrating the drip rate to achieve rate control with a heart rate at least 100 or lower. Continue with his metoprolol. Continue with his home Xarelto dose. Check a TSH, if it has not already been done on the last admission, to rule out hyperthyroidism as a cause of this RVR. (4) CAP (community acquired pneumonia) Conclusion/Plan: His Covid PCR is negative. A pneumonia could have promoted the atrial flutter with RVR He has no cough in order to obtain a sputum culture. We will begin empiric IV ceftriaxone and oral Zithromax. (5) Hyponatremia Conclusion/Plan: This is possibly hypervolemic hyponatremia. Will minimize IV fluids. Follow I's and O's and daily weights. Follow BMP daily (6) Anemia Conclusion/Plan: Will check B12 and folate levels and iron stores and treat if low (7) Chronic back pain Conclusion/Plan: Will continue his home dose of Gabapentin. (8) Noncompliance with medication regimen Conclusion/Plan: As per history, the patient was considered high risk after his outpatient stress test in October 2019 but did not have cardiology evaluation. When he was here a month ago, he did not fill his prescribed Xarelto. When he had a Cardiology appointment already arranged for him during the admission a month ago, he apparently did not keep the appointment. - Lab Results Fish Bones: 03/26/21 00:30 03/26/21 05:20
[2021-03-26 05:36] LABS: CALCIUM 9.5 mg/dL (8.5-10.3); CREATININE 0.9 mg/dL (0.6-1.2); POTASSIUM 5.1 mmol/L (3.5-5.0)
[2021-03-26] MEDS: cefTRIAXone 2 GM in SODIUM CHLORIDE 0.9% MINIBAG 100 ML IV SCH (05:43)
[2021-03-26 06:00] LABS: % IRON SATURATION 26 % (20-50); IRON 75 ug/dL (45-182); TOTAL IRON BINDING CAPACITY 294 ug/dL (250-450); TRANSFERRIN 210 mg/dL (180-329)
[2021-03-26] MEDS: GABAPENTIN 300 MG CAPSULE PO SCH ×3 (06:04→20:46)
[2021-03-26] MEDS: diltiaZEM INJ 125 MG in DEXTROSE 5% 100 ML IV SCH (06:10)
[2021-03-26 06:21] LABS: FOLATE 7.72 ng/mL (5.90 - >24.8)
--- NOTE | 2021-03-26 07:17 | PHARMACY PROGRESS NOTE ---
- Best Possible Medication History Admit Date and Time: 03/26/21 0426 Processed by: Nursing Medication History completed: Yes (MED REC COMPLETED BY NURSING) As the person ultimately responsible for medication therapy, providers are able to order a medication from an existing home medication list in [facility] via the "Reconcile Routine" prior to Confirmation of that medication by technical support associate. Such practice is discouraged except when the physician, in their clinical judgment, deems that a medical need exists for a medication without regard to previous use.
--- NOTE | 2021-03-26 08:57 | XRAY Report ---
PROCEDURE: Chest 1 View X-Ray INDICATIONS: chest pain TECHNIQUE: One view of the chest was acquired. COMPARISON: 02/26/2021 CT angiogram chest reviewed. FINDINGS: Surgical changes and devices: None. Lungs and pleura: No pleural effusions or pneumothorax. Lungs are abnormal with a mild pneumonia pa ttern lateral right upper lobe which is superimposed upon by a cardiac monitoring leads. Mediastinum: Mediastinal contours appear normal. Heart size is normal. Bones and chest wall: No suspicious bony lesions. Overlying soft tissues appear unremarkable. IMPRESSION: Mild or early pneumonia right upper lobe partially obscured by a monitoring lead in that area. No ple ural effusion seen. Reviewed by: Dudley Mathias MD on 03/26/2021 7:55 AM CONTRERAS Approved by: Dudley Mathias MD on 03/26/2021 7:55 AM CONTRERAS Station ID: [id number]
[2021-03-26] MEDS: ASPIRIN EC 81 MG TABLET PO SCH (09:10)
[2021-03-26] MEDS: METOPROLOL SUCCINATE 50 MG TABLET PO SCH ×2 (09:10→18:34)
[2021-03-26] MEDS: SODIUM CHLORIDE FLUSH 0.9% 10 ML SYRINGE IVP SCH ×2 (09:14→16:06)
[2021-03-26] MEDS: PANTOPRAZOLE 40 MG TABLET PO SCH ×2 (09:14→20:47)
[2021-03-26] MEDS: diltiaZEM CD 120 MG CAPSULE PO SCH (11:27)
[2021-03-26] MEDS: ACETAMINOPHEN 325 MG TABLET PO PRN (15:57)
--- NOTE | 2021-03-26 20:23 | PROVIDER PROGRESS NOTE ---
Pilot Supervisor Note - Pilot Supervisor Note Pilot Supervisor Note: Patient had good heart rate control down to 60 to 90 bpm on IV Cardizem. The Cardizem is being weaned down and oral Cardizem started today. Patient complained of a black bowel movement. The day Hospitalist saw the patient who admitted that he was using high doses of NSAIDs for chronic low back pain. The patient's hemoglobin this admission is 9.7 and it was 13.5 just 10 days ago. Impression: Aflutter with RVR, heart rate is now controlled. Melena Anemia New anticoagulant Xarelto use over the past 10 days Plan: The patient will be admitted to Inpatient status. Continue plan for heart rate control, as previously spelled out. Guaic of stool ordered. Follow CBC q12h. Transfuse blood if Hgb <7. Will order general surgery consult for EGD, and will make the patient n.p.o. after midnight tonight. His Xarelto will not be stopped unless he has a guaiac positive stool documented.
[2021-03-26] MEDS ORDERED: RIVAROXABAN 10 MG TABLET PO SCH (21:00)
[2021-03-26 22:14] LABS: HGB - HEMOGLOBIN 7.2 g/dL (14.0-18.0)
[2021-03-27] MEDS: SODIUM CHLORIDE FLUSH 0.9% 10 ML SYRINGE IVP SCH ×3 (00:20→16:27)
[2021-03-27] MEDS: ACETAMINOPHEN 325 MG TABLET PO PRN (04:55)
[2021-03-27 04:56] LABS: BASOPHILS # (AUTO) 0.1 10^3/uL (0.0-0.1); BASOPHILS % (AUTO) 0.6 %; EOSINOPHILS # (AUTO) 0.2 10^3/uL (0.0-0.7); EOSINOPHILS % (AUTO) 1.7 %; HCT - HEMATOCRIT 20.5 % (42.0-52.0); LYMPHOCYTES # (AUTO) 0.8 10^3/uL (1.5-3.5); LYMPHOCYTES % (AUTO) 9.5 %; MEAN CORPUSCULAR HEMOGLOBIN 32.1 pg (27.0-31.0); MEAN CORPUSCULAR HGB CONC 33.7 g/dL (32.0-36.0); MEAN CORPUSCULAR VOLUME 95.3 fL (80.0-94.0); MONOCYTES # (AUTO) 0.8 10^3/uL (0.0-1.0); MONOCYTES % (AUTO) 8.8 %; NEUTROPHILS # (AUTO) 6.9 10^3/uL (1.5-6.6); NEUTROPHILS % (AUTO) 78.8 %; PLT - PLATELET COUNT 274 10^3/uL (130-450); RED BLOOD COUNT 2.15 10^6/uL (4.70-6.10); RED CELL DISTRIBUTION WIDTH 13.2 % (12.0-15.0); WHITE BLOOD COUNT 8.8 x10^3/uL (4.8-10.8)
[2021-03-27 05:00] LABS: POTASSIUM 4.4 mmol/L (3.5-5.0)
[2021-03-27 05:04] LABS: FECAL OCCULT BLOOD (FIT) POSITIVE (NEGATIVE)
[2021-03-27 05:16] LABS: HGB - HEMOGLOBIN 6.9 g/dL (14.0-18.0)
[2021-03-27] MEDS: GABAPENTIN 300 MG CAPSULE PO SCH ×3 (05:51→20:30)
[2021-03-27] MEDS: diltiaZEM INJ 125 MG in DEXTROSE 5% 100 ML IV SCH ×2 (07:43→13:07)
--- NOTE | 2021-03-27 07:51 | PROVIDER PROGRESS NOTE ---
Assessment/Plan - Problem List (1) Unresponsive episode Assessment/Plan: Shortly after the initial visit this morning, the patient went to the bad room and after returning into bed he complained of not feeling well. His eyes then rolled back in his head and then he became unresponsive. A CODE BLUE was called out. Chest compressions were done for less than a minute and he woke up. Shortly after he woke up his heart rate was in the 130s. EKG showed he was in a chair flutter with a 2-1 AV block. Troponin was normal He instantly complained of back pain with radiation down his legs. Patient was started on IV hydration with normal saline at 150 mils per hour. He was given morphine 2 mg IV x1 for pain and then Dilaudid 0.5 mg IV x1 for pain. He also received Ativan 0.5 mg IV x1. I spoke with Dr. Roche the assembler installer structures on-call at [facility] The patient was in the process of receiving Suprep at the time of this incident. The planned EGD and colonoscopy was canceled as a result of the episode of unr esponsiveness. I explained to the assembler installer structures the concern about proceeding with the procedure in light of his unresponsive episode and requested a cardiac evaluation and possibly coronary angiogram prior to the procedure. Dr. Roche was agreeable to see the patient in consult at [facility]. I spoke to the warehouse puller at [facility] who said they would contact us again when they have bed availability. The patient is to undergo back surgery at [facility] in the near future and has been referred to Dr. Ling a assembler installer structures in [place] for preop evaluation and cardiac clearance prior to surgery. This appointment was scheduled for 04/03/21. (2) Atrial flutter with rapid ventricular response Assessment/Plan: Diltiazem drip was resumed at 5 mg/h. He is on diltiazem CD 120 mg p.o. daily and metoprolol succinate 100 mg p.o. twice daily. His heart rate has been in the 90s for most of the day since unresponsive in around 9:30am Xarelto was discontinued yesterday due to anemia and likely GI bleed. (3) GI bleed Assessment/Plan: The patient has chronic back pain. In addition he had compression fracture within the past few month. He has been taking significant amount of NSAIDs in this time. He was prescribed Xarelto during his last discharge on 02/27/21. He only started taking Xarelto 2 weeks ago when he presented to the ED with another episode of atrial fibrillation with rapid ventricular rhythm. He was treated and discharged from the ED and the Xarelto was represcribed then. His hemoglobin on 02/26/21 was 13.8. This morning his hemoglobin is 6.9. 2 units of packed red blood cells were ordered and administered through the course of the day. General surgery has been consulted for possible EGD and colonoscopy. The patient had been given the first dose of Suprep by the time he had the unresponsive episode. As a result of that episode the procedure was canceled until the patient could be seen and evaluated by cardiology. We will reach out to Dr. Roche a assembler installer structures in [facility] who is acceptable to see the patient in consult. We will reach out to [facility] again tomorrow to see about bed availability. He is on a Protonix drip. Xarelto was discontinued yesterday. We will also hold aspirin. (4) Anemia Assessment/Plan: Secondary to extensive NSAID use for back pain while also being on Xarelto for atrial fibrillation. Patient's hemoglobin on 02/26/21 was 13.8. Today his hemoglobin is 6.9. Patient was transfused 2 units of packed red blood cells through the cause of the day. We will monitor his vitals closely. We will also monitor his H&H closely and transfuse further as indicated. Patient will be seen by general surgery or gastroenterology after he has been cleared from a cardiac point of view. (5) Chest pain Qualifiers: Chest pain type: unspecified Qualified Code(s): R07.9 - Chest pain, unspecified Assessment/Plan: Patient has known ischemic disease from stress test that was done in October 22. Multiple attempts have been made to get him to see a assembler installer structures. Each time he has either not showed up or canceled the appointment. Xarelto and aspirin were held due to GI bleed. He is on metoprolol 100 mg p.o. twice daily. Troponin is negative so far. (6) Chronic back pain Assessment/Plan: Pain management with morphine as needed. The patient is to undergo back surgery in the recent future once evaluated and cleared from a cardiac point of view by cardiology. (7) Noncompliance with medication regimen Assessment/Plan: Patient has known ischemic disease from stress test that was done in October 2019. Multiple attempts have been made to get him to see a assembler installer structures. Each time he has either not showed up or canceled the appointment. He has another appointment scheduled on 04/03/[address] Ling assembler installer structures in [place] and with the [facility]. Given his episode of unresponsiveness today we are attempting to transfer him to [facility] to be seen by cardiology executive receptionist sooner. We will reach out to [facility] again tomorrow - Current Meds Current Meds: Current Medications Generic Name Dose Route Start Last Admin Trade Name Freq PRN Reason Stop Dose Admin Acetaminophen 650 mg 03/26/21 04:28 03/27/21 04:55 Acetaminophen 325 Mg Tablet PO 650 mg Q4HR PRN Administration Pain or Fever > 38C (100.4F) Aspirin 81 mg 03/26/21 09:00 03/26/21 09:10 Aspirin Ec 81 Mg Tablet PO 81 mg DAILY MIMI Administration Diltiazem HCl 120 mg 03/26/21 09:00 03/26/21 11:27 Diltiazem Cd 120 Mg Capsule PO 120 mg DAILY MIMI Administration Gabapentin 900 mg 03/26/21 21:00 03/26/21 20:46 Gabapentin 300 Mg Capsule PO 900 mg QPM MIMI Administration Gabapentin 300 mg 03/26/21 06:00 03/27/21 05:51 Gabapentin 300 Mg Capsule PO 300 mg BID@0600,1200 MIMI Administration Ceftriaxone Sodium 2 gm/ 100 mls @ 200 mls/hr 03/26/21 05:00 03/26/21 06:18 Sodium Chloride IV Infused DAILY MIMI Infusion Diltiazem HCl 125 mg/ Dextrose 125 mls @ 5 mls/hr 03/26/21 05:00 03/27/21 07:43 IV Not Given .Q25H MIMI Protocol 5 MG/HR Metoprolol Succinate 100 mg 03/26/21 09:00 03/26/21 18:34 Metoprolol Succinate 50 Mg Tablet PO 100 mg BID MIMI Administration Pantoprazole Sodium 40 mg 03/26/21 09:00 03/26/21 20:47 Pantoprazole 40 Mg Tablet PO 40 mg BID MIMI Administration Sodium Chloride 10 ml 03/26/21 09:00 03/27/21 00:20 Sodium Chloride Flush 0.9% 10 Ml Syringe IVP 10 ml 0100,0900,1700 [facility] Administration - Lab Result Fish Bone Diagrams: 03/27/21 15:36 03/27/21 09:40 - Additional Planning My Orders: My Active Orders 03/26/21 09:00 Pantoprazole [Protonix] 40 mg PO BID diltiaZEM CD [Cardizem Cd] 120 mg PO DAILY 03/26/21 18:31 Miscellaenous Nursing Order [RC] ONCE 03/27/21 RBC, LEUKOREDUCED Routine TYPE AND SCREEN Routine 03/27/21 07:43 Transfuse RBCs Leukoreduced [RC] .ONCE TYPE AND SCREEN Stat 03/27/21 08:00 Sodium/Potassium/Mag Sulfates [Suprep Bowel Prep Kit] 177 ml PO 0800,1200 Subjective - Subjective Patient Reports: Other (He was resting comfortably in bed with HR in the 90's at initial visit. Reported having black stools last night. Hgb was 6.9 this am. Shortly afterwards, a CODE BLUE was called. He had just returned from the restroom and complained of not feeling well. His eyes rolled back and he was unresponsive.) Objective Vital Signs: Vital Signs - 24 hr 03/26/21 03/26/21 03/26/21 07:51 07:55 07:56 Temperature Heart Rate 70 88 110 H Heart Rate [ Monitoring electrodes] Respiratory 11 L 28 H 24 Rate Blood Pressure 112/55 L Blood Pressure [Left Brachial artery] O2 Saturation 03/26/21 03/26/21 03/26/21 07:57 08:00 08:01 Temperature Heart Rate 92 103 H 103 H Heart Rate [ 109 H Monitoring electrodes] Respiratory 14 16 15 Rate Blood Pressure 107/55 L Blood Pressure 104/67 [Left Brachial artery] O2 Saturation 95 03/26/21 03/26/21 03/26/21 08:02 08:05 08:10 Temperature Heart Rate 116 H 96 92 Heart Rate [ Monitoring electrodes] Respiratory 14 18 11 L Rate Blood Pressure 104/67 Blood Pressure [Left Brachial artery] O2 Saturation 03/26/21 03/26/21 03/26/21 08:15 08:16 08:17 Temperature 36.6 C Heart Rate 92 93 Heart Rate [ Monitoring electrodes] Respiratory 18 13 Rate Blood Pressure Blood Pressure [Left Brachial artery] O2 Saturation 03/26/21 03/26/21 03/26/21 08:18 08:20 08:25 Temperature Heart Rate 92 80 117 H Heart Rate [ Monitoring electrodes] Respiratory 20 15 15 Rate Blood Pressure 90/65 Blood Pressure [Left Brachial artery] O2 Saturation 03/26/21 03/26/21 03/26/21 08:30 08:33 08:34 Temperature Heart Rate 126 H 69 72 Heart Rate [ Monitoring electrodes] Respiratory 22 13 14 Rate Blood Pressure 104/60 Blood Pressure [Left Brachial artery] O2 Saturation 03/26/21 03/26/21 03/26/21 08:35 08:40 08:45 Temperature Heart Rate 79 80 73 Heart Rate [ Monitoring electrodes] Respiratory 18 17 14 Rate Blood Pressure Blood Pressure [Left Brachial artery] O2 Saturation 03/26/21 03/26/21 03/26/21 08:46 08:50 08:55 Temperature Heart Rate 73 80 70 Heart Rate [ Monitoring electrodes] Respiratory 13 16 17 Rate Blood Pressure 98/62 Blood Pressure [Left Brachial artery] O2 Saturation 03/26/21 03/26/21 03/26/21 09:00 09:01 09:02 Temperature Heart Rate 70 88 70 Heart Rate [ 73 Monitoring electrodes] Respiratory 19 16 20 Rate Blood Pressure 105/65 Blood Pressure 105/65 [Left Brachial artery] O2 Saturation 03/26/21 03/26/21 03/26/21 09:15 09:16 09:17 Temperature Heart Rate 70 87 73 Heart Rate [ Monitoring electrodes] Respiratory 17 19 15 Rate Blood Pressure 113/60 Blood Pressure [Left Brachial artery] O2 Saturation 03/26/21 03/26/21 03/26/21 09:30 09:31 09:45 Temperature Heart Rate 72 69 68 Heart Rate [ Monitoring electrodes] Respiratory 20 12 17 Rate Blood Pressure 115/56 L Blood Pressure [Left Brachial artery] O2 Saturation 03/26/21 03/26/21 03/26/21 09:46 10:00 10:01 Temperature Heart Rate 68 74 71 Heart Rate [ 70 Monitoring electrodes] Respiratory 14 10 L 16 Rate Blood Pressure 107/51 L 99/54 L Blood Pressure 123/58 L [Left Brachial artery] O2 Saturation 97 03/26/21 03/26/21 03/26/21 10:15 10:16 10:30 Temperature Heart Rate 68 68 67 Heart Rate [ Monitoring electrodes] Respiratory 21 15 19 Rate Blood Pressure 102/60 Blood Pressure [Left Brachial artery] O2 Saturation 03/26/21 03/26/21 03/26/21 10:31 10:45 10:46 Temperature Heart Rate 70 67 70 Heart Rate [ Monitoring electrodes] Respiratory 18 18 16 Rate Blood Pressure 116/60 123/58 L Blood Pressure [Left Brachial artery] O2 Saturation 03/26/21 03/26/21 03/26/21 11:00 11:01 11:15 Temperature Heart Rate 68 68 69 Heart Rate [ 69 Monitoring electrodes] Respiratory 25 H 15 13 Rate Blood Pressure 115/65 Blood Pressure 125/60 [Left Brachial artery] O2 Saturation 97 03/26/21 03/26/21 03/26/21 11:16 11:30 11:31 Temperature Heart Rate 68 68 68 Heart Rate [ Monitoring electrodes] Respiratory 18 20 18 Rate Blood Pressure 125/60 Blood Pressure [Left Brachial artery] O2 Saturation 03/26/21 03/26/21 03/26/21 11:32 11:45 11:46 Temperature Heart Rate 90 67 70 Heart Rate [ Monitoring electrodes] Respiratory 16 13 16 Rate Blood Pressure 119/62 124/58 L Blood Pressure [Left Brachial artery] O2 Saturation 03/26/21 03/26/21 03/26/21 11:50 12:00 12:01 Temperature 36.7 C Heart Rate 69 69 Heart Rate [ 74 Monitoring electrodes] Respiratory 17 15 14 Rate Blood Pressure 111/58 L Blood Pressure 124/58 L [Left Brachial artery] O2 Saturation 97 03/26/21 03/26/21 03/26/21 12:15 12:16 12:30 Temperature Heart Rate 90 91 86 Heart Rate [ Monitoring electrodes] Respiratory 15 22 16 Rate Blood Pressure 130/67 Blood Pressure [Left Brachial artery] O2 Saturation 03/26/21 03/26/21 03/26/21 12:31 12:32 12:45 Temperature Heart Rate 92 88 141 H Heart Rate [ Monitoring electrodes] Respiratory 15 13 16 Rate Blood Pressure 123/53 L Blood Pressure [Left Brachial artery] O2 Saturation 03/26/21 03/26/21 03/26/21 13:00 13:01 13:02 Temperature Heart Rate 115 H 109 H 78 Heart Rate [ 91 Monitoring electrodes] Respiratory 18 17 13 Rate Blood Pressure Blood Pressure 118/57 L [Left Brachial artery] O2 Saturation 97 03/26/21 03/26/2103/26/21 13:05 13:06 13:45 Temperature Heart Rate 91 87 75 Heart Rate [ Monitoring electrodes] Respiratory 19 13 18 Rate Blood Pressure 118/57 L 104/52 L Blood Pressure [Left Brachial artery] O2 Saturation 03/26/21 03/26/21 03/26/21 13:47 13:59 14:00 Temperature Heart Rate 69 72 75 Heart Rate [ 70 Monitoring electrodes] Respiratory 14 22 13 Rate Blood Pressure 118/54 L Blood Pressure 118/54 L [Left Brachial artery] O2 Saturation 03/26/21 03/26/21 03/26/21 14:01 14:14 14:15 Temperature Heart Rate 70 88 70 Heart Rate [ Monitoring electrodes] Respiratory 16 15 10 L Rate Blood Pressure 108/64 Blood Pressure [Left Brachial artery] O2 Saturation 03/26/21 03/26/21 03/26/21 14:16 14:29 14:30 Temperature Heart Rate 83 75 72 Heart Rate [ Monitoring electrodes] Respiratory 22 13 12 Rate Blood Pressure 121/59 L Blood Pressure [Left Brachial artery] O2 Saturation 03/26/21 03/26/21 03/26/21 14:31 14:44 14:45 Temperature Heart Rate 69 69 70 Heart Rate [ Monitoring electrodes] Respiratory 17 23 14 Rate Blood Pressure 114/59 L Blood Pressure [Left Brachial artery] O2 Saturation 03/26/21 03/26/21 03/26/21 14:46 14:59 15:00 Temperature Heart Rate 71 72 72 Heart Rate [ 69 Monitoring electrodes] Respiratory 14 14 15 Rate Blood Pressure 117/54 L Blood Pressure 113/53 L [Left Brachial artery] O2 Saturation 98 03/26/21 03/26/21 03/26/21 15:01 15:14 15:15 Temperature Heart Rate 69 70 70 Heart Rate [ Monitoring electrodes] Respiratory 13 13 12 Rate Blood Pressure 113/53 L Blood Pressure [Left Brachial artery] O2 Saturation 03/26/21 03/26/21 03/26/21 15:16 15:30 15:31 Temperature Heart Rate 69 70 69 Heart Rate [ Monitoring electrodes] Respiratory 12 16 15 Rate Blood Pressure 102/47 L Blood Pressure [Left Brachial artery] O2 Saturation 03/26/21 03/26/21 03/26/21 15:38 15:39 15:45 Temperature Heart Rate 84 72 133 H Heart Rate [ Monitoring electrodes] Respiratory 17 19 31 H Rate Blood Pressure 102/47 L Blood Pressure [Left Brachial artery] O2 Saturation 03/26/21 03/26/21 03/26/21 15:46 15:47 16:00 Temperature 36.7 C Heart Rate 108 H 90 70 Heart Rate [ 71 Monitoring electrodes] Respiratory 15 18 15 Rate Blood Pressure 102/47 L Blood Pressure 125/55 L [Left Brachial artery] O2 Saturation 97 03/26/21 03/26/21 03/26/21 16:01 16:14 16:15 Temperature Heart Rate 68 70 67 Heart Rate [ Monitoring electrodes] Respiratory 15 18 14 Rate Blood Pressure 125/55 L 131/60 H Blood Pressure [Left Brachial artery] O2 Saturation 03/26/21 03/26/21 03/26/21 16:16 16:30 16:31 Temperature Heart Rate 71 69 69 Heart Rate [ Monitoring electrodes] Respiratory 24 15 13 Rate Blood Pressure 112/57 L Blood Pressure [Left Brachial artery] O2 Saturation 03/26/21 03/26/21 03/26/21 16:44 16:45 16:46 Temperature Heart Rate 68 69 69 Heart Rate [ Monitoring electrodes] Respiratory 12 14 13 Rate Blood Pressure 112/59 L Blood Pressure [Left Brachial artery] O2 Saturation 03/26/21 03/26/21 03/26/21 17:00 17:01 17:15 Temperature Heart Rate 86 95 92 Heart Rate [ 70 Monitoring electrodes] Respiratory 16 19 16 Rate Blood Pressure 128/48 L Blood Pressure 107/52 L [Left Brachial artery] O2 Saturation 95 03/26/21 03/26/21 03/26/21 17:16 17:29 17:30 Temperature Heart Rate 91 69 69 Heart Rate [ Monitoring electrodes] Respiratory 18 12 12 Rate Blood Pressure 100/51 L 108/52 L Blood Pressure [Left Brachial artery] O2 Saturation 03/26/21 03/26/21 03/26/21 17:31 17:44 17:45 Temperature Heart Rate 76 69 72 Heart Rate [ Monitoring electrodes] Respiratory 13 13 14 Rate Blood Pressure 108/52 L Blood Pressure [Left Brachial artery] O2 Saturation 03/26/21 03/26/21 03/26/21 17:46 17:59 18:00 Temperature Heart Rate 76 70 70 Heart Rate [ 70 Monitoring electrodes] Respiratory 15 14 13 Rate Blood Pressure 107/52 L Blood Pressure 107/52 L [Left Brachial artery] O2 Saturation 97 97 06/04/1003/26/21 03/26/21 18:01 19:00 20:00 Temperature 37.2 C Heart Rate 70 Heart Rate [ 70 99 Monitoring electrodes] Respiratory 13 13 19 Rate Blood Pressure Blood Pressure 118/63 142/64 H [Left Brachial artery] O2 Saturation 96 96 03/26/21 03/26/21 03/27/21 21:00 22:00 00:04 Temperature Heart Rate Heart Rate [ 94 90 89 Monitoring electrodes] Respiratory 15 19 12 Rate Blood Pressure Blood Pressure 120/56 L 116/59 L 132/57 H [Left Brachial artery] O2 Saturation 96 96 100 03/27/21 04:51 Temperature 37.2 C Heart Rate Heart Rate [ 107 H Monitoring electrodes] Respiratory 16 Rate Blood Pressure Blood Pressure 103/60 [Left Brachial artery] O2 Saturation 97 Oxygen O2 Source Room air I&O (Last 24 Hrs): Intake and Output Totals x24h 03/25/21 03/26/21 03/27/21 23:59 23:59 23:59 Intake Total 1279.959 500 Output Total 250 Balance 1029.959 500 General: Alert, Oriented x3, Moderate distress (back pain), Severe distress HEENT: PERRLA, EOMI Neck: Supple, No JVD Neuro: Alert, Non Focal, Oriented Times 3 Cardiovascular: Other (Irregularly irregular Heart rhythm, Tachycardia) Respiratory: Chest non-tender, No respiratory distress, Breath sounds nml Abdomen: Normal bowel sounds, Soft Rectal: Black Stool Extremities: No clubbing, No cyanosis, No edema, No tenderness/swelling Skin: No rashes, No breakdown, No significant lesion - Results Results: Laboratory Results WBC 8.8 x10^3/uL (4.8-10.8) 03/27/21 04:44 RBC 2.15 10^6/uL (4.70-6.10) L 03/27/21 04:44 Hgb 6.9 g/dL (14.0-18.0) L* 03/27/21 04:44 Hct 20.5 % (42.0-52.0) L 03/27/21 04:44 MCV 95.3 fL (80.0-94.0) H 03/27/21 04:44 MCH 32.1 pg (27.0-31.0) H 03/27/21 04:44 MCHC 33.7 g/dL (32.0-36.0) 03/27/21 04:44 RDW 13.2 % (12.0-15.0) 03/27/21 04:44 Plt Count 274 10^3/uL (130-450) 03/27/21 04:44 MPV 9.0 fL (7.4-11.4) 03/27/21 04:44 Neut # (Auto) 6.9 10^3/uL (1.5-6.6) H 03/27/21 04:44 Lymph # (Auto) 0.8 10^3/uL (1.5-3.5) L 03/27/21 04:44 [place] # (Auto) 0.8 10^3/uL (0.0-1.0) 03/27/21 04:44 Eos # (Auto) 0.2 10^3/uL (0.0-0.7) 03/27/21 04:44 Baso # (Auto) 0.1 10^3/uL (0.0-0.1) 03/27/21 04:44 Absolute Nucleated RBC 0.00 x10^3/uL 03/27/21 04:44 Nucleated RBC % 0.0 /100WBC 03/27/21 04:44 Sodium 135 mmol/L (135-145) 03/27/21 04:44 Potassium 4.4 mmol/L (3.5-5.0) 03/27/21 04:44 Chloride 102 mmol/L (101-111) 03/27/21 04:44 Carbon Dioxide 23 mmol/L (21-32) 03/27/21 04:44 Anion Gap 10.0 (6-13) 03/27/21 04:44 BUN 49 mg/dL (6-20) H 03/27/21 04:44 Creatinine 1.0 mg/dL (0.6-1.2) 03/27/21 04:44 Estimated GFR (MDRD) 72 (>89) L 03/27/21 04:44 Glucose 113 mg/dL (70-100) H 03/27/21 04:44 Calcium 9.0 mg/dL (8.5-10.3) 03/27/21 04:44 Iron 75 ug/dL (45-182) 03/26/21 05:20 TIBC 294 ug/dL (250-450) 03/26/21 05:20 % Saturation 26 % (20-50) 03/26/21 05:20 Transferrin 210 mg/dL (180-329) 03/26/21 05:20 Total Bilirubin 0.4 mg/dL (0.2-1.0) 03/26/21 00:30 AST 23 IU/L (10-42) 03/26/21 00:30 ALT 17 IU/L (10-60) 03/26/21 00:30 Alkaline Phosphatase 70 IU/L (42-121) 03/26/21 00:30 Troponin I High Sens 29.2 ng/L (2.3-19.7) H* 03/26/21 05:20 Total Protein 6.4 g/dL (6.7-8.2) L 03/26/21 00:30 Albumin 3.6 g/dL (3.2-5.5) 03/26/21 00:30 Globulin 2.8 g/dL (2.1-4.2) 03/26/21 00:30 Albumin/Globulin Ratio 1.3 (1.0-2.2) 03/26/21 00:30 Lipase 35 U/L (22-51) 03/26/21 00:30 Vitamin B12 333 pg/mL (180-914) 03/26/21 05:20 Folate 7.72 ng/mL (5.90 - >24.8) 03/26/21 05:20 TSH 1.49 uIU/mL (0.34-5.60) 03/26/21 05:20 Nasal Adenovirus (PCR) NOT DETECTED 03/26/21 01:35 Nasal B. parapertussis DNA (PCR) NOT DETECTED 03/26/21 01:35 Nasal Coronavir 229E PCR NOT DETECTED 03/26/21 01:35 Nasal Coronavir HKU1 PCR NOT DETECTED 03/26/21 01:35 Nasal Coronavir NL63 PCR NOT DETECTED 03/26/21 01:35 Nasal Coronavir OC43 PCR NOT DETECTED 03/26/21 01:35 Nasal Enterovir/Rhinovir PCR NOT DETECTED 03/26/21 01:35 Nasal Influenza B PCR NOT DETECTED 03/26/21 01:35 Nasal Influenza A PCR NOT DETECTED 03/26/21 01:35 Nasal Parainfluen 1 PCR NOT DETECTED 03/26/21 01:35 Nasal Parainfluen 2 PCR NOT DETECTED 03/26/21 01:35 Nasal Parainfluen 3 PCR NOT DETECTED 03/26/21 01:35 Nasal Parainfluen 4 PCR NOT DETECTED 03/26/21 01:35 Nasal RSV (PCR) NOT DETECTED 03/26/21 01:35 Nasal Screen MRSA (PCR) NEGATIVE (NEGATIVE) 03/26/21 05:40 Nasal B.pertussis DNA PCR NOT DETECTED 03/26/21 01:35 Nasal C.pneumoniae (PCR) NOT DETECTED 03/26/21 01:35 [place] Human Metapneumo PCR NOT DETECTED 03/26/21 01:35 Nasal M.pneumoniae (PCR) NOT DETECTED 03/26/21 01:35 Nasal SARS-CoV-2 (PCR) NOT DETECTED 03/26/21 01:35 Stl Occult Blood (IFOB) POSITIVE (NEGATIVE) A 03/27/21 02:00 ABX Reporting Has patient been on IV antibiotics over the past 48 hours?: No
[2021-03-27] MEDS: ASPIRIN EC 81 MG TABLET PO SCH (08:33)
[2021-03-27] MEDS: AZITHROMYCIN 250 MG TABLET PO SCH (08:35)
[2021-03-27] MEDS: diltiaZEM CD 120 MG CAPSULE PO SCH (08:35)
[2021-03-27] MEDS: METOPROLOL SUCCINATE 50 MG TABLET PO SCH ×2 (08:35→20:30)
[2021-03-27] MEDS: PANTOPRAZOLE 40 MG TABLET PO SCH (08:35)
[2021-03-27] MEDS: cefTRIAXone 2 GM in SODIUM CHLORIDE 0.9% MINIBAG 100 ML IV SCH (08:40)
[2021-03-27] MEDS: SODIUM/POTASSIUM/MAG SULFATES 354 ML PREP KIT PO SCH ×2 (08:51→13:05)
[2021-03-27] MEDS ORDERED: SODIUM CHLORIDE 0.9% 500 ML IV ONE (09:38)
[2021-03-27] MEDS ORDERED: MORPHINE 2 MG/ML CARPUJECT ONE (09:39)
[2021-03-27] MEDS: MORPHINE 2 MG/ML CARPUJECT IVP PRN ×2 (09:40→16:27)
[2021-03-27] MEDS ORDERED: LORazepam 2 MG/ML VIAL IVP STA (09:41)
[2021-03-27] MEDS: SODIUM CHLORIDE 0.9% 1,000 ML IV SCH ×2 (09:48→16:27)
[2021-03-27] MEDS ORDERED: HYDROmorphone 1 MG/ML CARPUJECT IVP STA (09:49)
[2021-03-27] MEDS ORDERED: CYCLOBENZAPRINE 10 MG TABLET PO STA (09:49)
[2021-03-27 09:50] LABS: BASOPHILS % (AUTO) 0.4 %; EOSINOPHILS # (AUTO) 0.2 10^3/uL (0.0-0.7); EOSINOPHILS % (AUTO) 1.5 %; HCT - HEMATOCRIT 22.1 % (42.0-52.0); HGB - HEMOGLOBIN 7.4 g/dL (14.0-18.0); LYMPHOCYTES # (AUTO) 1.3 10^3/uL (1.5-3.5); LYMPHOCYTES % (AUTO) 11.4 %; MEAN CORPUSCULAR HEMOGLOBIN 32.2 pg (27.0-31.0); MEAN CORPUSCULAR HGB CONC 33.5 g/dL (32.0-36.0); MEAN CORPUSCULAR VOLUME 96.1 fL (80.0-94.0); MEAN PLATELET VOLUME 8.4 fL (7.4-11.4); MONOCYTES # (AUTO) 1.1 10^3/uL (0.0-1.0); MONOCYTES % (AUTO) 9.7 %; NEUTROPHILS # (AUTO) 8.4 10^3/uL (1.5-6.6); NEUTROPHILS % (AUTO) 76.2 %; NRBC ABSOLUTE COUNT (AUTO) 0.03 x10^3/uL; NUCLEATED RED BLOOD CELLS AUTO 0.3 /100WBC; PLT - PLATELET COUNT 315 10^3/uL (130-450); RED CELL DISTRIBUTION WIDTH 13.4 % (12.0-15.0)
[2021-03-27 10:09] LABS: CALCIUM 9.1 mg/dL (8.5-10.3); CREATININE 1.1 mg/dL (0.6-1.2); POTASSIUM 4.3 mmol/L (3.5-5.0)
[2021-03-27] MEDS: PANTOPRAZOLE 80 MG in SODIUM CHLORIDE 0.9% 100ML 100 ML IV SCH ×2 (11:57→23:45)
--- NOTE | 2021-03-27 14:31 | PROVIDER PROGRESS NOTE ---
Progress Note 80-year-old female with acute onset dysphagia and suspected esophageal obstruction. Underwent upper endoscopy as per below. A. 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 B. This was ultimately pushed through the GE junction and extensively irrigated and aspirated with continuous lavage and pulse through the accessory port. Some of it was retrieved with a Kaminski net. C. At this point there was no clear malignancy/mass however there did appear to be a distal esophageal stricture that was traversable from an endoscopic standpoint and we would consider dilation At the Conclusion of This Case. D. We aggressively aspirated fibrous material with no large particles remaining and proceeded with standard upper endoscopy as per below: 1. Duodenum normal. No evidence of of duodenitis. Cold forcep biopsy obtained. Hemostatic. 2. Antrum without any antritis. Biopsies obtained cold forceps. Hemostatic. Patent pylorus. 3. Retroflexion with no significant hiatal herniation. 4. No diffuse gastritis or gastropathy. No polyps. No ulcerations. 5. GE junction with mild inflammatory changes and irregular Z-line. Biopsied. D. We proceeded to perform pneumatic dilation of the distal esophageal stricture starting with balloon 15 mm to 18 mm [id number] without any complication no bleeding. This area was also independently biopsied cold forceps hemostatic. E. We thereafter proceeded to dilate through 21 mm with a [id number] balloon pneumatic dilator successfully no complication. This area was freely traversable endoscopically with no complication. F. We thoroughly evaluated the GE junction the entirety of the esophagus and the oropharynx to assure there was no remnant fibers food bolus that would interfere the with the patient safe extubation. And also the stomach was extensively aspirated for any remnant food and fluid. Assessment and plan: 80-year-old female with retained food bolus distal esophagus secondary to partial stricture. Removed per above. Plan is as follows: 1. Dysphagia diet. 2. Small frequent meals 3. PPI with twice daily omeprazole 4. Reglan as promotility agent before every meal 5 mg orally 5. Speech and swallow eval
[2021-03-27 15:42] LABS: HCT - HEMATOCRIT 21.9 % (42.0-52.0); HGB - HEMOGLOBIN 7.6 g/dL (14.0-18.0); MEAN CORPUSCULAR HEMOGLOBIN 33.2 pg (27.0-31.0); MEAN CORPUSCULAR HGB CONC 34.7 g/dL (32.0-36.0); MEAN CORPUSCULAR VOLUME 95.6 fL (80.0-94.0); MEAN PLATELET VOLUME 8.7 fL (7.4-11.4); RED BLOOD COUNT 2.29 10^6/uL (4.70-6.10); RED CELL DISTRIBUTION WIDTH 13.2 % (12.0-15.0); WHITE BLOOD COUNT 8.3 x10^3/uL (4.8-10.8)
[2021-03-28] MEDS: SODIUM CHLORIDE 0.9% 1,000 ML IV SCH ×4 (02:59→23:18)
[2021-03-28] MEDS: SODIUM CHLORIDE FLUSH 0.9% 10 ML SYRINGE IVP SCH ×4 (03:12→20:45)
[2021-03-28] MEDS: GABAPENTIN 300 MG CAPSULE PO SCH ×3 (06:25→20:45)
[2021-03-28 07:55] LABS: BASOPHILS % (AUTO) 0.5 %; EOSINOPHILS # (AUTO) 0.1 10^3/uL (0.0-0.7); EOSINOPHILS % (AUTO) 1.6 %; HCT - HEMATOCRIT 21.8 % (42.0-52.0); HGB - HEMOGLOBIN 7.5 g/dL (14.0-18.0); LYMPHOCYTES # (AUTO) 0.7 10^3/uL (1.5-3.5); LYMPHOCYTES % (AUTO) 8.6 %; MEAN CORPUSCULAR HEMOGLOBIN 32.6 pg (27.0-31.0); MEAN CORPUSCULAR HGB CONC 34.4 g/dL (32.0-36.0); MEAN CORPUSCULAR VOLUME 94.8 fL (80.0-94.0); MEAN PLATELET VOLUME 8.8 fL (7.4-11.4); MONOCYTES # (AUTO) 0.7 10^3/uL (0.0-1.0); MONOCYTES % (AUTO) 9.7 %; NEUTROPHILS % (AUTO) 78.9 %; NRBC ABSOLUTE COUNT (AUTO) 0.03 x10^3/uL; NUCLEATED RED BLOOD CELLS AUTO 0.4 /100WBC; PLT - PLATELET COUNT 247 10^3/uL (130-450); RED CELL DISTRIBUTION WIDTH 14.3 % (12.0-15.0); WHITE BLOOD COUNT 7.6 x10^3/uL (4.8-10.8)
[2021-03-28 08:07] LABS: CALCIUM 8.2 mg/dL (8.5-10.3); CREATININE 0.8 mg/dL (0.6-1.2); MAGNESIUM 1.9 mg/dL (1.7-2.8); PHOSPHORUS 2.3 mg/dL (2.5-4.6); POTASSIUM 3.6 mmol/L (3.5-5.0)
[2021-03-28] MEDS: METOPROLOL SUCCINATE 50 MG TABLET PO SCH ×2 (08:33→20:45)
[2021-03-28] MEDS: diltiaZEM CD 120 MG CAPSULE PO SCH (08:34)
[2021-03-28] MEDS: AZITHROMYCIN 250 MG TABLET PO SCH (08:35)
[2021-03-28] MEDS: cefTRIAXone 2 GM in SODIUM CHLORIDE 0.9% MINIBAG 100 ML IV SCH (08:45)
[2021-03-28] MEDS: ASPIRIN EC 81 MG TABLET PO SCH (08:50)
[2021-03-28] MEDS: PANTOPRAZOLE 80 MG in SODIUM CHLORIDE 0.9% 100ML 100 ML IV SCH (10:28)
--- NOTE | 2021-03-28 15:37 | PROVIDER PROGRESS NOTE ---
Subjective - Prog Note Date Prog Note Date: 03/28/21 - Subjective Subjective: He reports feeling well. Denies any chest pain or dyspnea. He denies any abdominal pain. He would like to be transferred as soon as possible as he is becoming impatient waiting here at our facility. Current Medications - Current Medications Current Medications: Active Medications Acetaminophen (Acetaminophen 325 Mg Tablet) 650 mg PO Q4HR PRN PRN Reason: Pain or Fever > 38C (100.4F) Last Admin: 03/27/21 04:55 Dose: 650 mg Documented by: Azithromycin (Azithromycin 250 Mg Tablet) 250 mg PO DAILY [facility] Stop: 03/31/21 00:01 Last Admin: 03/28/21 08:35 Dose: 250 mg Documented by: Diltiazem HCl (Diltiazem Cd 120 Mg Capsule) 120 mg PO DAILY [facility] Last Admin: 03/28/21 08:34 Dose: 120 mg Documented by: Gabapentin (Gabapentin 300 Mg Capsule) 900 mg PO QPM [facility] Last Admin: 03/27/21 20:30 Dose: 900 mg Documented by: Gabapentin (Gabapentin 300 Mg Capsule) 300 mg PO BID@0600,1200 [facility] Last Admin: 03/28/21 12:03 Dose: 300 mg Documented by: Ceftriaxone Sodium 2 gm/ (Sodium Chloride) 100 mls @ 200 mls/hr IV DAILY [facility]IMI Stop: 03/31/21 10:00 Last Infusion: 03/28/21 09:20 Dose: Infused Documented by: Pantoprazole Sodium 80 mg/ (Sodium Chloride) 100 mls @ 10 mls/hr IV .Q10H [facility] Last Infusion: 03/28/21 12:03 Dose: 10 mls/hr Documented by: Sodium Chloride (Normal Saline 0.9%) 1,000 mls @ 150 mls/hr IV .Q6H40M [facility] Last Infusion: 03/28/21 12:03 Dose: 150 mls/hr Documented by: Metoprolol Succinate (Metoprolol Succinate 50 Mg Tablet) 100 mg PO BID [facility] Last Admin: 03/28/21 08:33 Dose: 100 mg Documented by: Morphine Sulfate (Morphine 2 Mg/Ml Carpuject) 2 mg IVP Q2HR PRN PRN Reason: PAIN Last Admin: 03/27/21 16:27 Dose: 2 mg Documented by: Ondansetron HCl (Ondansetron 4 Mg/2 Ml Vial) 4 mg IVP Q6HR PRN PRN Reason: Nausea / Vomiting Sodium Chloride (Sodium Chloride Flush 0.9% 10 Ml Syringe) 10 ml IVP 0100,0900,1700 [facility] Last Admin: 03/28/21 08:44 Dose: 10 ml Documented by: Sodium Chloride (Sodium Chloride Flush 0.9% 10 Ml Syringe) 10 ml IVP PRN PRN PRN Reason: NEEDED PER PROVIDER ORDERS Gabapentin [Neurontin] 900 mg PO QPM 02/26/21 Losartan [Cozaar] 100 mg PO DAILY 02/26/21 Acetaminophen [Tylenol Extra Strength] 500 mg PO Q4HR 03/26/21 Gabapentin [Neurontin] 300 mg PO BID 03/26/21 Objective - Vital Signs/Intake & Output Reviewed Vital Signs: Yes Vital Signs: Vital Signs Temp Pulse Resp BP Pulse Ox 03/28/21 15:00 88 15 134/58 H 97 03/28/21 14:00 76 17 114/52 L 03/28/21 13:00 66 16 113/55 L 03/28/21 12:00 37.1 C 87 18 123/60 Intake & Output: Intake & Output 03/25/21 03/26/21 03/27/21 03/28/21 23:59 23:59 23:59 23:59 Intake Total 3910.796 9199.251 2678.416 Output Total 250 825 351 Balance 7511.199 8962.251 2327.416 - Objective General Appearance: positive: No acute distress, Alert Eyes Bilateral: positive: Normal inspection ENT: positive: ENT inspection nml Neck: positive: Nml inspection Respiratory: positive: No respiratory distress. negative: Wheezes, Rales Cardiovascular: positive: Irregularly irregular. negative: Tachycardia, Systolic murmur Abdomen: positive: Non-tender, No distention. negative: Tenderness Skin: positive: Warm, Dry Extremities: positive: No pedal edema Neurologic/Psychiatric: negative: Disoriented to person, Disoriented to place - Lab Results Fish Bones: 03/28/21 07:47 03/28/21 07:47 Other Labs: Lab Results x24hrs 03/28/21 03/28/21 03/28/21 Range/Units 07:47 07:47 07:47 WBC 7.6 (4.8-10.8) x10^3/uL RBC 2.30 L (4.70-6.10) 10^6/uL Hgb 7.5 L (14.0-18.0) g/dL Hct 21.8 L (42.0-52.0) % MCV 94.8 H (80.0-94.0) fL MCH 32.6 H (27.0-31.0) pg MCHC 34.4 (32.0-36.0) g/dL RDW 14.3 (12.0-15.0) % Plt Count 247 (130-450) 10^3/uL MPV 8.8 (7.4-11.4) fL Neut # (Auto) 6.0 (1.5-6.6) 10^3/uL Lymph # (Auto) 0.7 L (1.5-3.5) 10^3/uL [place] # (Auto) 0.7 (0.0-1.0) 10^3/uL Eos # (Auto) 0.1 (0.0-0.7) 10^3/uL Baso # (Auto) 0.0 (0.0-0.1) 10^3/uL Absolute Nucleated RBC 0.03 x10^3/uL Nucleated RBC % 0.4 /100WBC Sodium 135 (135-145) mmol/L Potassium 3.6 (3.5-5.0) mmol/L Chloride 103 (101-111) mmol/L Carbon Dioxide 24 (21-32) mmol/L Anion Gap 8.0 (6-13) BUN 28 H (6-20) mg/dL Creatinine 0.8 (0.6-1.2) mg/dL Estimated GFR (MDRD) 93 (>89) Glucose 113 H (70-100) mg/dL Calcium 8.2 L (8.5-10.3) mg/dL Phosphorus 2.3 L (2.5-4.6) mg/dL Magnesium 1.9 (1.7-2.8) mg/dL Troponin I High Sens 19.9 H* (2.3-19.7) ng/L Blood Type Antibody Screen Crossmatch IS Only 03/27/21 03/27/21 Range/Units 15:36 08:10 WBC 8.3 (4.8-10.8) x10^3/uL RBC 2.29 L (4.70-6.10) 10^6/uL Hgb 7.6 L (14.0-18.0) g/dL Hct 21.9 L (42.0-52.0) % MCV 95.6 H (80.0-94.0) fL MCH 33.2 H (27.0-31.0) pg MCHC 34.7 (32.0-36.0) g/dL RDW 13.2 (12.0-15.0) % Plt Count 256 (130-450) 10^3/uL MPV 8.7 (7.4-11.4) fL Neut # (Auto) (1.5-6.6) 10^3/uL Lymph # (Auto) (1.5-3.5) 10^3/uL [place] # (Auto) (0.0-1.0) 10^3/uL Eos # (Auto) (0.0-0.7) 10^3/uL Baso # (Auto) (0.0-0.1) 10^3/uL Absolute Nucleated RBC x10^3/uL Nucleated RBC % /100WBC Sodium (135-145) mmol/L Potassium (3.5-5.0) mmol/L Chloride (101-111) mmol/L Carbon Dioxide (21-32) mmol/L Anion Gap (6-13) BUN (6-20) mg/dL Creatinine (0.6-1.2) mg/dL Estimated GFR (MDRD) (>89) Glucose (70-100) mg/dL Calcium (8.5-10.3) mg/dL Phosphorus (2.5-4.6) mg/dL Magnesium (1.7-2.8) mg/dL Troponin I High Sens (2.3-19.7) ng/L Blood Type A NEGATIVE Antibody Screen NEGATIVE Crossmatch IS Only See Detail Assessment/Plan - Problem List (1) Unresponsive episode Impression: He had an unresponsive episode yesterday at about 9:30 in the morning. CPR was initiated for less than 1 minute with return of spontaneous circulation. He was reportedly asystole on telemetry just prior to the event and was in atrial flut ter with a 2-1 block on return of spontaneous circulation. He was never intubated. Troponins have been negative. It is unclear if this was actually a cardiac arrest or a syncopal episode. Nonetheless, it is felt that he is doing fine a low risk to undergo any intervention here such as an endoscopy and is so transfer was discussed and will with cardiology yesterday at [facility] who agreed to consult on the patient. Unfortunately, there are no beds available at the moment and so he remains here at our facility until a bed is available. We are hopeful this will happen this afternoon. An echocardiogram has been ordered. Continue to monitor on telemetry. Continue to trend troponin. (2) GI bleed Impression: Suspect this is an upper GI bleed likely due to gastritis or ulcer given his NSAID use due to the back pain. He responded well to 1 unit of packed red blood cell and hemoglobin has since been stable. We are planning to transfer to a higher level of care for endoscopy given his unresponsive episode yesterday and concern for underlying coronary artery disease given his history of positive stress test in the past. We are just awaiting bed availability and we are hopeful this will happen this afternoon. Continue with Protonix 40 mg IV twice daily. Clear liquid diet as tolerated. (3) Acute blood loss anemia Impression: This is secondary to upper GI bleed. His hemoglobin this morning is stable compared to yesterday. We will recheck her hemoglobin this afternoon and transfuse for goal hemoglobin greater than 7. Continue with hemoglobin every 8 hours otherwise until he is transferred. SCDs for DVT prophylaxis. (4) Atrial flutter with rapid ventricular response Impression: His heart rate has been controlled off of the diltiazem on his current dose of oral metoprolol and diltiazem. We are holding the Xarelto given the upper GI bleed. We will continue with metoprolol 100 mg twice daily and the current dose of diltiazem 120 mg daily. (5) CAP (community acquired pneumonia) Impression: Chest x-ray on admission was concerning for possible right upper lobe infiltrate. Patient has no cough or dyspnea or white count but he has been treated empirically for possible community-acquired pneumonia. We will continue to oral azithromycin and switch him to oral Ceftin.
[2021-03-28] MEDS: ACETAMINOPHEN 325 MG TABLET PO PRN (17:06)
[2021-03-28 18:01] LABS: HCT - HEMATOCRIT 22.6 % (42.0-52.0); HGB - HEMOGLOBIN 7.6 g/dL (14.0-18.0)
[2021-03-28] MEDS: PANTOPRAZOLE 40 MG VIAL IVP SCH (20:45)
[2021-03-29] MEDS: ACETAMINOPHEN 325 MG TABLET PO PRN ×3 (02:15→16:42)
[2021-03-29 05:09] LABS: BASOPHILS % (AUTO) 0.5 %; EOSINOPHILS # (AUTO) 0.2 10^3/uL (0.0-0.7); HCT - HEMATOCRIT 20.8 % (42.0-52.0); LYMPHOCYTES # (AUTO) 0.8 10^3/uL (1.5-3.5); LYMPHOCYTES % (AUTO) 10.4 %; MEAN CORPUSCULAR HEMOGLOBIN 32.9 pg (27.0-31.0); MEAN CORPUSCULAR HGB CONC 33.7 g/dL (32.0-36.0); MEAN CORPUSCULAR VOLUME 97.7 fL (80.0-94.0); MONOCYTES # (AUTO) 0.8 10^3/uL (0.0-1.0); MONOCYTES % (AUTO) 10.5 %; NEUTROPHILS # (AUTO) 5.8 10^3/uL (1.5-6.6); NEUTROPHILS % (AUTO) 75.8 %; PLT - PLATELET COUNT 256 10^3/uL (130-450); RED BLOOD COUNT 2.13 10^6/uL (4.70-6.10); RED CELL DISTRIBUTION WIDTH 14.4 % (12.0-15.0); WHITE BLOOD COUNT 7.6 x10^3/uL (4.8-10.8)
[2021-03-29 05:12] LABS: CALCIUM 8.2 mg/dL (8.5-10.3); CREATININE 0.7 mg/dL (0.6-1.2); POTASSIUM 3.4 mmol/L (3.5-5.0)
[2021-03-29] MEDS: GABAPENTIN 300 MG CAPSULE PO SCH ×2 (06:00→13:49)
[2021-03-29] MEDS: SODIUM CHLORIDE 0.9% 1,000 ML IV SCH (06:02)
--- NOTE | 2021-03-29 07:10 | PROVIDER PROGRESS NOTE ---
Hospitalist Cross-cover Note - Cross-Cover Note Cross-Cover Note: March 29, 2021 7:09 AM Patient has had very recent MT and is also having a GI bleed in the face of alcoholism and a left hip fracture. His requirements for oxygen are higher than a patient without coronary artery disease. Transfusion for hemoglobin less than 8 would be indicated. Today's hemoglobin is 7 and as such I will order 1 unit
[2021-03-29] MEDS: diltiaZEM CD 120 MG CAPSULE PO SCH (08:24)
[2021-03-29] MEDS: METOPROLOL SUCCINATE 50 MG TABLET PO SCH (08:24)
[2021-03-29] MEDS: PANTOPRAZOLE 40 MG VIAL IVP SCH (08:25)
[2021-03-29] MEDS: SODIUM CHLORIDE FLUSH 0.9% 10 ML SYRINGE IVP SCH (08:25)
[2021-03-29] MEDS: AZITHROMYCIN 250 MG TABLET PO SCH (08:25)
--- NOTE | 2021-03-29 09:11 | DISCHARGE SUMMARY ---
Discharge Summary Admit Date: 03/26/21 Discharge Date: 03/29/21 Discharging Provider: Reddy Esquivel Primary Care Provider: Tyler Carson Code Status: Attempt Resuscitation Condition at Discharge: Good Discharge Disposition: 02 Transfer Acute Care Hosp Discharge Facility Name: [facility] - DIAGNOSES Admission Diagnoses: Chest pain Hypertension Atrial flutter with rapid ventricular response Community-acquired pneumonia Hyponatremia Anemia Chronic back pain Noncompliance with medication regimen Discharge Diagnoses with Status of Each Condition: Unresponsive episode - resolved. GI bleed - ongoing. Acute blood loss anemia - ongoing. Atrial flutter with rapid response - stable. Community-acquired pneumonia - improved. History of abnormal stress test - stable. - HPI History of Present Illness: H&P per Dr. Nettles: This is a 80-year-old WM with history of new onset of atrial flutter 1 month ago, admitted here had an Echo showing normal LVEF and was discharged on beta- blockers and Xarelto with an appointment to Cardiology. He did not fill the p rescription for Xarelto and did not see the Graduation Coach. About a week ago, he was sent to the ER from a surgical office appointment when his heart rate was noted to be 150. In the ER then, he was in atrial flutter with RVR again, was given IV beta-paul several times and had his oral metoprolol dose increased and Xarelto re-prescribed and he was discharged from the ER. Today he presents to the ER with chest pain which is on and off for several hours. He was given 1" of Nitropaste in the ED and hadresolution of chest pain. But, he was al,so found to be in atrial flutter with RVR again. He was given 1 dose of IV beta-paul. The combination of medicine given created hypotension with systolic blood pressure of 89mmHg. The blood pressure has recovered by removing the topical Nitropaste. Other work-up reveals a chest x-ray that shows a new right sided infiltrate. He has no cough or desaturations. The patient is being placed in Observation to start IV Cardizem for rate control and as a vasodilator to treat chest pain and he will be put on antibiotics for a community-acquired pneumonia. - CONSULTS | PROCEDURES Consultations: General Surgery - HOSPITAL COURSE Hospital Course: The patient was admitted to the intensive care unit for atrial fibrillation and rapid ventricular response to community-acquired pneumonia. He was started on a diltiazem drip to control his rate. He was resumed on his home oral metoprolol and oral diltiazem was added and the diltiazem drip was able to be discontinued. It was noted that he was anemic on admission and his hemoglobin continued to drop during this hospitalization. His stool was heme positive and so he started on Protonix and general surgery was consulted for endoscopy and colonoscopy. His hemoglobin did decrease to less than 7 and he received 1 unit of packed red blood cell. The plan was for EGD and colonoscopy on Saturday but unfortunately that morning, he had an unresponsive episode after walking back from the bathroom. He was reportedly asystole and CPR was initiated with return of spontaneous circulation after less than 1 minute. He was immediately awake and back to his baseline. He was complaining of back pain rating down his legs. Troponins were checked and these were within normal limits. Given this episode, it was felt that transfer to high-level care was warranted as he would be a higher risk for sedation for EGD/colonoscopy. This was discussed with cardiology at [facility] who agreed to consult on the patient. [facility] available and so he was not able to be transferred until today. His hemoglobin did decrease again this morning to 7.0 and he received another unit of packed red blood cell. There has been no evidence of obvious bleeding. At this time he remains n.p.o. and on Protonix 40 mg IV twice daily. Xarelto and aspirin have been discontinued. He remains on metoprolol and diltiazem p.o. for rate control. He is being transferred to [facility] for higher level of care for cardiology evaluation and for further work-up of his suspected upper GI bleed which is felt to be related to NSAID use for his chronic back pain. He has also since been transitioned to oral antibi otics and today is day 4 of antibiotics. He is now on oral Ceftin and azithromycin. I did speak with Dr. Smith of the hospitalist service at [facility] who graciously excepted the patient in transfer. I also spoke with Dr. Patel of the GI service to make him aware of the patient and he will be more than happy to consult on the patient for EGD and colonoscopy. - ALLERGIES Allergies/Adverse Reactions: Allergies Allergy/AdvReac Type Severity Reaction Status Date / Time No Known Drug Allergies Allergy Verified 03/26/21 00:36 - MEDICATIONS Home Medications: Ambulatory Orders Medication Instructions Recorded Confirmed Gabapentin [Neurontin] 900 mg PO QPM 02/26/21 03/26/21 Losartan [Cozaar] 100 mg PO DAILY 02/26/21 03/26/21 Rivaroxaban [Xarelto] 20 mg PO QPM 30 Days #30 tablet 02/27/21 03/26/21 Metoprolol Succinate [Toprol Xl] 100 mg PO BID #60 tablet 03/15/21 03/26/21 Acetaminophen [Tylenol Extra 500 mg PO Q4HR 03/26/21 03/26/21 Strength] Gabapentin [Neurontin] 300 mg PO BID 03/26/21 03/26/21 - PHYSICAL EXAM AT DISCHARGE General Appearance: positive: No acute distress, Alert Eyes Bilateral: positive: Normal inspection ENT: positive: ENT inspection nml Neck: positive: Nml inspection Respiratory: positive: No respiratory distress. negative: Wheezes, Rales Cardiovascular: positive: Irregularly irregular, Tachycardia. negative: Bradycardia, Systolic murmur Abdomen: positive: Non-tender, No distention. negative: Tenderness Skin: positive: Warm, Dry, Pallor Extremities: positive: Full ROM, Pedal edema (Trace to +1 in bilateral ankles.) Neurologic/Psychiatric: negative: Motor nml, Disoriented to person, Disoriented to place Physical Exam Other/Comments: Vital Signs - 8 hr 03/29/21 03/29/21 03/29/21 08:00 09:08 09:23 Temperature 36.8 C 36.8 C 36.8 C Heart Rate 104 H 99 Heart Rate [ 106 H Monitoring electrodes] Respiratory 15 16 18 Rate Blood Pressure 128/79 136/53 H Blood Pressure 146/89 H [Left Brachial artery] O2 Saturation 94 03/29/21 03/29/21 03/29/21 10:00 11:00 11:44 Temperature 36.9 C Heart Rate 66 Heart Rate [ 90 89 Monitoring electrodes] Respiratory 18 16 15 Rate Blood Pressure 126/66 Blood Pressure 126/66 111/60 [Left Brachial artery] O2 Saturation 99 96 03/29/21 03/29/21 03/29/21 12:00 13:00 14:00 Temperature 36.9 C Heart Rate Heart Rate [ 72 66 87 Monitoring electrodes] Respiratory 15 16 22 Rate Blood Pressure Blood Pressure 123/64 123/61 142/64 H [Left Brachial artery] O2 Saturation 98 96 94 - LABS Result Diagrams: 03/29/21 04:16 03/29/21 04:16 Other Lab Results: Laboratory Tests 03/26/21 03/26/21 03/26/21 00:30 00:30 00:30 WBC 6.9 RBC 3.06 L Hgb 9.7 L Hct 29.2 L MCV 95.4 H MCH 31.7 H MCHC 33.2 RDW 12.9 Plt Count 308 MPV 8.6 Neut # (Auto) 5.1 Lymph # (Auto) 0.9 L [place] # (Auto) 0.7 Eos # (Auto) 0.1 Baso # (Auto) 0.0 Absolute Nucleated RBC 0.00 Nucleated RBC % 0.0 Sodium 132 L Potassium 4.7 Chloride 97 L Carbon Dioxide 25 Anion Gap 10.0 BUN 48 H Creatinine 1.0 Estimated GFR (MDRD) 72 L Glucose 121 H Calcium 9.7 Phosphorus Magnesium Iron TIBC % Saturation Transferrin Total Bilirubin 0.4 AST 23 ALT 17 Alkaline Phosphatase 70 Troponin I High Sens 22.0 H* Total Protein 6.4 L Albumin 3.6 Globulin 2.8 Albumin/Globulin Ratio 1.3 Lipase 35 Vitamin B12 Folate TSH Nasal Adenovirus (PCR) Nasal B. parapertussis DNA (PCR) Nasal Coronavir 229E PCR Nasal Coronavir HKU1 PCR Nasal Coronavir NL63 PCR Nasal Coronavir OC43 PCR Nasal Enterovir/Rhinovir PCR Nasal Influenza B PCR Nasal Influenza A PCR Nasal Parainfluen 1 PCR Nasal Parainfluen 2 PCR Nasal Parainfluen 3 PCR Nasal Parainfluen 4 PCR Nasal RSV (PCR) Nasal Screen MRSA (PCR) Nasal B.pertussis DNA PCR Nasal C.pneumoniae (PCR) [place] Human Metapneumo PCR Nasal M.pneumoniae (PCR) Nasal SARS-CoV-2 (PCR) Stl Occult Blood (IFOB) Blood Type Blood Type Recheck Antibody Screen Crossmatch IS Only 03/26/21 03/26/21 03/26/21 01:35 05:20 05:20 WBC RBC Hgb Hct MCV MCH MCHC RDW Plt Count MPV Neut # (Auto) Lymph # (Auto) [place] # (Auto) Eos # (Auto) Baso # (Auto) Absolute Nucleated RBC Nucleated RBC % Sodium 130 L Potassium 5.1 H Chloride 98 L Carbon Dioxide 24 Anion Gap 8.0 BUN 61 H Creatinine 0.9 Estimated GFR (MDRD) 81 L Glucose 115 H Calcium 9.5 Phosphorus Magnesium Iron TIBC % Saturation Transferrin Total Bilirubin AST ALT Alkaline Phosphatase Troponin I High Sens 29.2 H* Total Protein Albumin Globulin Albumin/Globulin Ratio Lipase Vitamin B12 Folate TSH Nasal Adenovirus (PCR) NOT DETECTED Nasal B. parapertussis DNA (PCR) NOT DETECTED Nasal Coronavir 229E PCR NOT DETECTED Nasal Coronavir HKU1 PCR NOT DETECTED Nasal Coronavir NL63 PCR NOT DETECTED Nasal Coronavir OC43 PCR NOT DETECTED Nasal Enterovir/Rhinovir PCR NOT DETECTED Nasal Influenza B PCR NOT DETECTED Nasal Influenza A PCR NOT DETECTED Nasal Parainfluen 1 PCR NOT DETECTED Nasal Parainfluen 2 PCR NOT DETECTED Nasal Parainfluen 3 PCR NOT DETECTED Nasal Parainfluen 4 PCR NOT DETECTED Nasal RSV (PCR) NOT DETECTED Nasal Screen MRSA (PCR) Nasal B.pertussis DNA PCR NOT DETECTED Nasal C.pneumoniae (PCR) NOT DETECTED [place] Human Metapneumo PCR NOT DETECTED Nasal M.pneumoniae (PCR) NOT DETECTED Nasal SARS-CoV-2 (PCR) NOT DETECTED Stl Occult Blood (IFOB) Blood Type Blood Type Recheck Antibody Screen Crossmatch IS Only 03/26/21 03/26/21 03/26/21 05:20 05:20 05:20 WBC RBC Hgb Hct MCV MCH MCHC RDW Plt Count MPV Neut # (Auto) Lymph # (Auto) [place] # (Auto) Eos # (Auto) Baso # (Auto) Absolute Nucleated RBC Nucleated RBC % Sodium Potassium Chloride Carbon Dioxide Anion Gap BUN Creatinine Estimated GFR (MDRD) Glucose Calcium Phosphorus Magnesium Iron 75 TIBC 294 % Saturation 26 Transferrin 210 Total Bilirubin AST ALT Alkaline Phosphatase Troponin I High Sens Total Protein Albumin Globulin Albumin/Globulin Ratio Lipase Vitamin B12 333 Folate 7.72 TSH 1.49 Nasal Adenovirus (PCR) Nasal B. parapertussis DNA (PCR) Nasal Coronavir 229E PCR Nasal Coronavir HKU1 PCR Nasal Coronavir NL63 PCR Nasal Coronavir OC43 PCR Nasal Enterovir/Rhinovir PCR Nasal Influenza B PCR Nasal Influenza A PCR Nasal Parainfluen 1 PCR Nasal Parainfluen 2 PCR Nasal Parainfluen 3 PCR Nasal Parainfluen 4 PCR Nasal RSV (PCR) Nasal Screen MRSA (PCR) Nasal B.pertussis DNA PCR Nasal C.pneumoniae (PCR) [place] Human Metapneumo PCR Nasal M.pneumoniae (PCR) Nasal SARS-CoV-2 (PCR) Stl Occult Blood (IFOB) Blood Type Blood Type Recheck Antibody Screen Crossmatch IS Only 03/26/21 03/26/21 03/27/21 05:40 22:09 02:00 WBC RBC Hgb 7.2 L Hct 21.0 L MCV MCH MCHC RDW Plt Count MPV Neut # (Auto) Lymph # (Auto) [place] # (Auto) Eos # (Auto) Baso # (Auto) Absolute Nucleated RBC Nucleated RBC % Sodium Potassium Chloride Carbon Dioxide Anion Gap BUN Creatinine Estimated GFR (MDRD) Glucose Calcium Phosphorus Magnesium Iron TIBC % Saturation Transferrin Total Bilirubin AST ALT Alkaline Phosphatase Troponin I High Sens Total Protein Albumin Globulin Albumin/Globulin Ratio Lipase Vitamin B12 Folate TSH Nasal Adenovirus (PCR) Nasal B. parapertussis DNA (PCR) Nasal Coronavir 229E PCR Nasal Coronavir HKU1 PCR Nasal Coronavir NL63 PCR Nasal Coronavir OC43 PCR Nasal Enterovir/Rhinovir PCR Nasal Influenza B PCR Nasal Influenza A PCR Nasal Parainfluen 1 PCR Nasal Parainfluen 2 PCR Nasal Parainfluen 3 PCR Nasal Parainfluen 4 PCR Nasal RSV (PCR) Nasal Screen MRSA (PCR) NEGATIVE Nasal B.pertussis DNA PCR Nasal C.pneumoniae (PCR) [place] Human Metapneumo PCR Nasal M.pneumoniae (PCR) Nasal SARS-CoV-2 (PCR) Stl Occult Blood (IFOB) POSITIVE A Blood Type Blood Type Recheck Antibody Screen Crossmatch IS Only 03/27/21 03/27/21 03/27/21 04:44 04:44 05:00 WBC 8.8 RBC 2.15 L Hgb 6.9 L* Hct 20.5 L MCV 95.3 H MCH 32.1 H MCHC 33.7 RDW 13.2 Plt Count 274 MPV 9.0 Neut # (Auto) 6.9 H Lymph # (Auto) 0.8 L [place] # (Auto) 0.8 Eos # (Auto) 0.2 Baso # (Auto) 0.1 Absolute Nucleated RBC 0.00 Nucleated RBC % 0.0 Sodium 135 Potassium 4.4 Chloride 102 Carbon Dioxide 23 Anion Gap 10.0 BUN 49 H Creatinine 1.0 Estimated GFR (MDRD) 72 L Glucose 113 H Calcium 9.0 Phosphorus Magnesium Iron TIBC % Saturation Transferrin Total Bilirubin AST ALT Alkaline Phosphatase Troponin I High Sens Total Protein Albumin Globulin Albumin/Globulin Ratio Lipase Vitamin B12 Folate TSH Nasal Adenovirus (PCR) Nasal B. parapertussis DNA (PCR) Nasal Coronavir 229E PCR Nasal Coronavir HKU1 PCR Nasal Coronavir NL63 PCR Nasal Coronavir OC43 PCR Nasal Enterovir/Rhinovir PCR Nasal Influenza B PCR Nasal Influenza A PCR Nasal Parainfluen 1 PCR Nasal Parainfluen 2 PCR Nasal Parainfluen 3 PCR Nasal Parainfluen 4 PCR Nasal RSV (PCR) Nasal Screen MRSA (PCR) Nasal B.pertussis DNA PCR Nasal C.pneumoniae (PCR) [place] Human Metapneumo PCR Nasal M.pneumoniae (PCR) Nasal SARS-CoV-2 (PCR) Stl Occult Blood (IFOB) Blood Type Blood Type Recheck A NEGATIVE Antibody Screen Crossmatch IS Only 03/27/21 03/27/21 03/27/21 08:10 09:40 09:40 WBC RBC Hgb Hct MCV MCH MCHC RDW Plt Count MPV Neut # (Auto) Lymph # (Auto) [place] # (Auto) Eos # (Auto) Baso # (Auto) Absolute Nucleated RBC Nucleated RBC % Sodium 136 Potassium 4.3 Chloride 101 Carbon Dioxide 23 Anion Gap 12.0 BUN 45 H Creatinine 1.1 Estimated GFR (MDRD) 65 L Glucose 167 H Calcium 9.1 Phosphorus Magnesium Iron TIBC % Saturation Transferrin Total Bilirubin AST ALT Alkaline Phosphatase Troponin I High Sens 18.3 Total Protein Albumin Globulin Albumin/Globulin Ratio Lipase Vitamin B12 Folate TSH Nasal Adenovirus (PCR) Nasal B. parapertussis DNA (PCR) Nasal Coronavir 229E PCR Nasal Coronavir HKU1 PCR Nasal Coronavir NL63 PCR Nasal Coronavir OC43 PCR Nasal Enterovir/Rhinovir PCR Nasal Influenza B PCR Nasal Influenza A PCR Nasal Parainfluen 1 PCR Nasal Parainfluen 2 PCR Nasal Parainfluen 3 PCR Nasal Parainfluen 4 PCR Nasal RSV (PCR) Nasal Screen MRSA (PCR) Nasal B.pertussis DNA PCR Nasal C.pneumoniae (PCR) [place] Human Metapneumo PCR Nasal M.pneumoniae (PCR) Nasal SARS-CoV-2 (PCR) Stl Occult Blood (IFOB) Blood Type A NEGATIVE Blood Type Recheck Antibody Screen NEGATIVE Crossmatch IS Only See Detail 03/27/21 03/27/21 03/28/21 09:40 15:36 07:47 WBC 11.0 H 8.3 7.6 RBC 2.30 L 2.29 L 2.30 L Hgb 7.4 L 7.6 L 7.5 L Hct 22.1 L 21.9 L 21.8 L MCV 96.1 H 95.6 H 94.8 H MCH 32.2 H 33.2 H 32.6 H MCHC 33.5 34.7 34.4 RDW 13.4 13.2 14.3 Plt Count 315 256 247 MPV 8.4 8.7 8.8 Neut # (Auto) 8.4 H 6.0 Lymph # (Auto) 1.3 L 0.7 L [place] # (Auto) 1.1 H 0.7 Eos # (Auto) 0.2 0.1 Baso # (Auto) 0.0 0.0 Absolute Nucleated RBC 0.03 0.03 Nucleated RBC % 0.3 0.4 Sodium Potassium Chloride Carbon Dioxide Anion Gap BUN Creatinine Estimated GFR (MDRD) Glucose Calcium Phosphorus Magnesium Iron TIBC % Saturation Transferrin Total Bilirubin AST ALT Alkaline Phosphatase Troponin I High Sens Total Protein Albumin Globulin Albumin/Globulin Ratio Lipase Vitamin B12 Folate TSH Nasal Adenovirus (PCR) Nasal B. parapertussis DNA (PCR) Nasal Coronavir 229E PCR Nasal Coronavir HKU1 PCR Nasal Coronavir NL63 PCR Nasal Coronavir OC43 PCR Nasal Enterovir/Rhinovir PCR Nasal Influenza B PCR Nasal Influenza A PCR Nasal Parainfluen 1 PCR Nasal Parainfluen 2 PCR Nasal Parainfluen 3 PCR Nasal Parainfluen 4 PCR Nasal RSV (PCR) Nasal Screen MRSA (PCR) Nasal B.pertussis DNA PCR Nasal C.pneumoniae (PCR) [place] Human Metapneumo PCR Nasal M.pneumoniae (PCR) Nasal SARS-CoV-2 (PCR) Stl Occult Blood (IFOB) Blood Type Blood Type Recheck Antibody Screen Crossmatch IS Only 03/28/21 03/28/21 03/28/21 07:47 07:47 17:54 WBC RBC Hgb 7.6 L Hct 22.6 L MCV MCH MCHC RDW Plt Count MPV Neut # (Auto) Lymph # (Auto) [place] # (Auto) Eos # (Auto) Baso # (Auto) Absolute Nucleated RBC Nucleated RBC % Sodium 135 Potassium 3.6 Chloride 103 Carbon Dioxide 24 Anion Gap 8.0 BUN 28 H Creatinine 0.8 Estimated GFR (MDRD) 93 Glucose 113 H Calcium 8.2 L Phosphorus 2.3 L Magnesium 1.9 Iron TIBC % Saturation Transferrin Total Bilirubin AST ALT Alkaline Phosphatase Troponin I High Sens 19.9 H* Total Protein Albumin Globulin Albumin/Globulin Ratio Lipase Vitamin B12 Folate TSH Nasal Adenovirus (PCR) Nasal B. parapertussis DNA (PCR) Nasal Coronavir 229E PCR Nasal Coronavir HKU1 PCR Nasal Coronavir NL63 PCR Nasal Coronavir OC43 PCR Nasal Enterovir/Rhinovir PCR Nasal Influenza B PCR Nasal Influenza A PCR Nasal Parainfluen 1 PCR Nasal Parainfluen 2 PCR Nasal Parainfluen 3 PCR Nasal Parainfluen 4 PCR Nasal RSV (PCR) Nasal Screen MRSA (PCR) Nasal B.pertussis DNA PCR Nasal C.pneumoniae (PCR) [place] Human Metapneumo PCR Nasal M.pneumoniae (PCR) Nasal SARS-CoV-2 (PCR) Stl Occult Blood (IFOB) Blood Type Blood Type Recheck Antibody Screen Crossmatch IS Only 03/28/21 03/29/21 03/29/21 17:54 04:16 04:16 WBC 7.6 RBC 2.13 L Hgb 7.0 L* Hct 20.8 L MCV 97.7 H MCH 32.9 H MCHC 33.7 RDW 14.4 Plt Count 256 MPV 9.0 Neut # (Auto) 5.8 Lymph # (Auto) 0.8 L [place] # (Auto) 0.8 Eos # (Auto) 0.2 Baso # (Auto) 0.0 Absolute Nucleated RBC 0.00 Nucleated RBC % 0.0 Sodium 137 Potassium 3.4 L Chloride 107 Carbon Dioxide 24 Anion Gap 6.0 BUN 19 Creatinine 0.7 Estimated GFR (MDRD) 109 Glucose 111 H Calcium 8.2 L Phosphorus Magnesium Iron TIBC % Saturation Transferrin Total Bilirubin AST ALT Alkaline Phosphatase Troponin I High Sens 17.7 Total Protein Albumin Globulin Albumin/Globulin Ratio Lipase Vitamin B12 Folate TSH Nasal Adenovirus (PCR) Nasal B. parapertussis DNA (PCR) Nasal Coronavir 229E PCR Nasal Coronavir HKU1 PCR Nasal Coronavir NL63 PCR Nasal Coronavir OC43 PCR Nasal Enterovir/Rhinovir PCR Nasal Influenza B PCR Nasal Influenza A PCR Nasal Parainfluen 1 PCR Nasal Parainfluen 2 PCR Nasal Parainfluen 3 PCR Nasal Parainfluen 4 PCR Nasal RSV (PCR) Nasal Screen MRSA (PCR) Nasal B.pertussis DNA PCR Nasal C.pneumoniae (PCR) [place] Human Metapneumo PCR Nasal M.pneumoniae (PCR) Nasal SARS-CoV-2 (PCR) Stl Occult Blood (IFOB) Blood Type Blood Type Recheck Antibody Screen Crossmatch IS Only - TIME SPENT Time Spent in Discharge (Minutes): 42
[2021-03-29 16:48] VITALS: BP 128/64
== END 2021-03-29 16:51 | disposition short-term general hospital (02) | DRG 308 ==
LOC: EDUNIT# → ED 00:18 → ICU 04:26 → OBSVTOIN 19:31
PROVIDERS: ADMIT Internal Medicine; ATTEND Internal Medicine
PROC: 30233N1 Transfusion of Nonautologous Red Blood Cells into Peripheral Vein, Percutaneous Approach (ICD-10-PCS; 2021-03-27)
PROC: 30233N1 Transfusion of Nonautologous Red Blood Cells into Peripheral Vein, Percutaneous Approach (ICD-10-PCS; principal; 2021-03-29)
DX: I48.3 Typical atrial flutter (principal); I48.92 Unspecified atrial flutter; R77.8 Other specified abnormalities of plasma proteins; J18.9 Pneumonia, unspecified organism; K92.2 Gastrointestinal hemorrhage, unspecified; D62 Acute posthemorrhagic anemia; M54.9 Dorsalgia, unspecified; T45.516A Underdosing of anticoagulants, initial encounter; Z91.128 Patient's intentional underdosing of medication regimen for other reason; R07.9 Chest pain, unspecified; I95.2 Hypotension due to drugs; T46.3X5A Adverse effect of coronary vasodilators, initial encounter; Z20.822 Contact with and (suspected) exposure to COVID-19; E87.1 Hypo-osmolality and hyponatremia; D64.9 Anemia, unspecified; Y92.239 Unspecified place in hospital as the place of occurrence of the external cause; I48.91 Unspecified atrial fibrillation; R40.4 Transient alteration of awareness; G89.29 Other chronic pain; T39.395A Adverse effect of other nonsteroidal anti-inflammatory drugs [NSAID], initial encounter; I10 Essential (primary) hypertension; Z82.49 Family history of ischemic heart disease and other diseases of the circulatory system; Z87.891 Personal history of nicotine dependence; M54.5 Low back pain; I25.2 Old myocardial infarction; F10.20 Alcohol dependence, uncomplicated; I25.10 Atherosclerotic heart disease of native coronary artery without angina pectoris
CPT/HCPCS: 36415; 71045; 80048; 80053; 82274; 82607; 82746; 83540; 83690; 83735; 84100; 84443; 84466; 84484; 85014; 85018; 85025; 85027; 86850; 86900; 86901; 86920; 87150; 87631; 93005; 93306; 96365; 96366; 96368; 96375; 96376; 99284; 99285; A9270; G0378; J1170; J2060; P9016; P9040; 0202U

== ENCOUNTER 2022-09-26 08:00 | Outpatient (CLI) | payer MEDICARE, OTHER | END 2022-09-26 23:59 | disposition home or self-care (01) | LOC: LAB.N 08:00 | PROVIDERS: ATTEND Physician Assistant | DX: L02.91 Cutaneous abscess, unspecified (principal) | CPT/HCPCS: 87070; 87181; 87205 ==

== ENCOUNTER 2022-10-22 14:20 | Outpatient (CLI) | payer MEDICARE, OTHER ==
--- NOTE | 2022-10-22 19:01 | XRAY Report ---
PROCEDURE: Foot 3 View LT INDICATIONS: CHRONIC PAIN IN LEFT FOOT TECHNIQUE: 3 views of the foot were acquired. COMPARISON: None FINDINGS: Bones: No fractures or dislocations. No suspicious bony lesions. There are degenerative changes se en throughout, which are worst along the first ray. Bony erosions can be seen, including involving th e interphalangeal joint of the great toe. Soft tissues: Soft tissue swelling is seen, particularly involving the great toe and the first metat arsophalangeal joint. IMPRESSION: Soft tissue swelling and bony changes, particularly involving the first ray. Gout is suspected. Reviewed by: Joce Lilly MD on 10/22/2022 6:00 PM [facility] Approved by: Joce Lilly MD on 10/22/2022 6:00 PM [facility] Station ID: [id number]
== END 2022-10-22 14:21 | disposition home or self-care (01) ==
LOC: DI 14:20
PROVIDERS: ATTEND Podiatrist
DX: M79.9 Soft tissue disorder, unspecified (principal); M19.072 Primary osteoarthritis, left ankle and foot; M85.872 Other specified disorders of bone density and structure, left ankle and foot

== ENCOUNTER 2022-10-29 09:00 | Outpatient (CLI) | payer MEDICARE, OTHER ==
[2022-10-29 09:13] LABS: BASOPHILS % (AUTO) 0.8 %; EOSINOPHILS # (AUTO) 0.1 10^3/uL (0.0-0.7); EOSINOPHILS % (AUTO) 1.7 %; HCT - HEMATOCRIT 39.6 % (42.0-52.0); LYMPHOCYTES # (AUTO) 0.8 10^3/uL (1.5-3.5); LYMPHOCYTES % (AUTO) 15.7 %; MEAN CORPUSCULAR HEMOGLOBIN 30.9 pg (27.0-31.0); MEAN CORPUSCULAR HGB CONC 32.8 g/dL (32.0-36.0); MEAN CORPUSCULAR VOLUME 94.1 fL (80.0-94.0); MEAN PLATELET VOLUME 9.1 fL (7.4-11.4); MONOCYTES # (AUTO) 0.6 10^3/uL (0.0-1.0); NEUTROPHILS # (AUTO) 3.6 10^3/uL (1.5-6.6); NEUTROPHILS % (AUTO) 69.6 %; PLT - PLATELET COUNT 164 10^3/uL (130-450); RED BLOOD COUNT 4.21 10^6/uL (4.70-6.10); WHITE BLOOD COUNT 5.2 x10^3/uL (4.8-10.8)
[2022-10-29 09:32] LABS: ALBUMIN 4.1 g/dL (3.2-5.5); ALBUMIN/GLOBULIN RATIO 1.3 (1.0-2.2); BILIRUBIN,TOTAL 0.9 mg/dL (0.2-1.0); CALCIUM 9.6 mg/dL (8.5-10.3); CREATININE 1.2 mg/dL (0.6-1.2); POTASSIUM 4.9 mmol/L (3.5-5.0); TOTAL PROTEIN 7.3 g/dL (6.7-8.2); URIC ACID 7.6 mg/dL (2.6-7.2)
== END 2022-10-29 09:01 | disposition home or self-care (01) ==
LOC: LAB 09:00
PROVIDERS: ATTEND Family Medicine
DX: I10 Essential (primary) hypertension (principal); I48.91 Unspecified atrial fibrillation; D64.9 Anemia, unspecified; M10.9 Gout, unspecified
CPT/HCPCS: 36415; 80053; 82607; 82746; 84550; 85025

== ENCOUNTER 2023-01-28 13:13 | Outpatient (CLI) | payer MEDICARE, OTHER ==
[2023-01-28 14:02] LABS: CALCIUM 9.4 mg/dL (8.5-10.3); POTASSIUM 4.1 mmol/L (3.5-5.0)
--- NOTE | 2023-01-28 15:22 | XRAY Report ---
PROCEDURE: Ankle 2 View LT INDICATIONS: PAIN IN ANKLE TECHNIQUE: 2 views of the ankle were acquired. COMPARISON: None. FINDINGS: Bones: Moderate ankle joint degenerative changes. The ankle mortise overall appears intact. There ar e particular/periarticular small bone fragments/ossification. No displaced fracture or dislocation. P artially seen degenerative changes and periarticular ossification around the first MTP, better seen o n prior radiograph. Soft tissues: Vascular calcifications are present. Suspected tibiotalar effusion. IMPRESSION: Moderate ankle joint degenerative changes and effusion with small bone fragments/ossification, withou t acute radiographic abnormality. If there is high concern for further derangement, consider MRI kaylee luation. Reviewed by: Shun Sigala MD on 01/28/2023 3:21 PM PDT Approved by: Shun Sigala MD on 01/28/2023 3:21 PM PDT Station ID: [id number]
== END 2023-01-28 13:14 | disposition home or self-care (01) ==
LOC: DI 13:13
PROVIDERS: ATTEND Nurse Practitioner Family
DX: M19.072 Primary osteoarthritis, left ankle and foot (principal); M25.472 Effusion, left ankle; I10 Essential (primary) hypertension
CPT/HCPCS: 36415; 80048

== ENCOUNTER 2023-02-23 08:00 | Outpatient (CLI) | payer MEDICARE, OTHER ==
[2023-02-23 20:03] LABS: BASOPHILS % (AUTO) 0.4 %; EOSINOPHILS % (AUTO) 0.6 %; HCT - HEMATOCRIT 40.3 % (42.0-52.0); LYMPHOCYTES # (AUTO) 0.6 10^3/uL (1.5-3.5); MEAN CORPUSCULAR HEMOGLOBIN 30.4 pg (27.0-31.0); MEAN CORPUSCULAR HGB CONC 32.3 g/dL (32.0-36.0); MEAN CORPUSCULAR VOLUME 94.4 fL (80.0-94.0); MEAN PLATELET VOLUME 10.1 fL (7.4-11.4); MONOCYTES # (AUTO) 0.5 10^3/uL (0.0-1.0); MONOCYTES % (AUTO) 8.8 %; PLT - PLATELET COUNT 205 10^3/uL (130-450); RED BLOOD COUNT 4.27 10^6/uL (4.70-6.10); RED CELL DISTRIBUTION WIDTH 12.9 % (12.0-15.0); WHITE BLOOD COUNT 5.1 x10^3/uL (4.8-10.8)
[2023-02-23 20:34] LABS: ALBUMIN/GLOBULIN RATIO 1.1 (1.0-2.2); BILIRUBIN,TOTAL 0.7 mg/dL (0.2-1.0); CALCIUM 9.8 mg/dL (8.5-10.3); POTASSIUM 4.5 mmol/L (3.5-5.0); TOTAL PROTEIN 7.5 g/dL (6.7-8.2)
== END 2023-02-23 23:59 | disposition home or self-care (01) ==
LOC: LAB.N 08:00
PROVIDERS: ATTEND Family Medicine
DX: R10.9 Unspecified abdominal pain (principal)
CPT/HCPCS: 36415; 80053; 83690; 85025

== ENCOUNTER 2023-02-26 14:08 | Outpatient (CLI) | payer MEDICARE, OTHER ==
[2023-02-26] MEDS ORDERED: DIATR MEGLU/DIATRIZOATE SODIUM 120 ML BOTTLE ONE (14:15)
[2023-02-26] MEDS ORDERED: iohexoL-300 100 ML VIAL ONE ×2 (14:15→14:29)
--- NOTE | 2023-02-26 16:47 | CT Report ---
PROCEDURE: ABDOMEN/PELVIS W INDICATIONS: ABD PAIN CONTRAST: Omni 300 100ml TECHNIQUE: After the administration of IV contrast, 5 mm thick sections acquired from the diaphragms to the symp hysis. 5 mm thick coronal and sagittal reformats were acquired. For radiation dose reduction, the f ollowing was used: automated exposure control, adjustment of mA and/or kV according to patient size. COMPARISON: 08/01/2020 FINDINGS: Image quality: Good Lower chest: There are basal granulomas. Scattered scarring and atelectasis. Small hiatal hernia. Cor onary calcifications. Solid organs: Subcentimeter hepatic lesions are too small to characterize. Per latest proposed guidel shazia, no dedicated followup is needed assuming patient has no primary malignancy history and is not h igh risk. Gallbladder is unremarkable. No pathologic dilation of the biliary tree or pancreatic duct. No spleno megaly. No adrenal nodules. No hydronephrosis. Vessels and lymph nodes: No abdominal aortic aneurysm. There are atherosclerotic calcifications. No p athologic adenopathy by size criteria. Bowel and peritoneum: No evidence of small bowel obstruction. There are colonic diverticula. No absce ss or pathologic ascites. There is trace inflammation the distal descending colon. Body wall: Unremarkable Pelvis: Bladder is unremarkable. Prostate is not well evaluated on this study. Bones: Degenerative changes. No acute or suspicious osseous finding. Hemilaminectomy changes. There i s a split fracture of the L3 vertebral body, new compared to 2020 imaging. IMPRESSION: New split fracture of the L3 vertebral body compared to 2020 imaging. Correlate with location of symp toms and consider MRI if acuity is uncertain. No definite underlying lesion, although follow-up imagi ng is recommended if there is a history of malignancy. Suspected acute on chronic diverticular disease, now with trace inflammation in the distal descending colon. Please consider correlation with age-appropriate colonoscopy results. Other incidental/stable findings as above. Above average fecal loading. Reviewed by: Shun Sigala MD on 02/26/2023 4:46 PM PDT Approved by: Shun Sigala MD on 02/26/2023 4:46 PM PDT Station ID: [id number]
[2023-02-26] MEDS: DIATRIZOATE MEGLU/DIATRIZO SOD 30 ML BOTTLE PO ONE (16:49)
[2023-02-26] MEDS: iohexoL-300 100 ML VIAL IVP ONE (16:49)
== END 2023-02-26 14:09 | disposition home or self-care (01) ==
LOC: DI 14:08
PROVIDERS: ATTEND Family Medicine
DX: R10.9 Unspecified abdominal pain (principal); S32.038A Other fracture of third lumbar vertebra, initial encounter for closed fracture
CPT/HCPCS: 74177; Q9963; Q9967

== ENCOUNTER 2023-08-16 13:31 | Outpatient (CLI) | payer MEDICARE, OTHER ==
[2023-08-16 13:42] LABS: BASOPHILS % (AUTO) 0.5 %; EOSINOPHILS # (AUTO) 0.1 10^3/uL (0.0-0.7); EOSINOPHILS % (AUTO) 1.4 %; HCT - HEMATOCRIT 41.2 % (42.0-52.0); HGB - HEMOGLOBIN 13.8 g/dL (14.0-18.0); LYMPHOCYTES % (AUTO) 15.4 %; MEAN CORPUSCULAR HEMOGLOBIN 30.8 pg (27.0-31.0); MEAN CORPUSCULAR HGB CONC 33.5 g/dL (32.0-36.0); MEAN PLATELET VOLUME 9.4 fL (7.4-11.4); MONOCYTES # (AUTO) 0.6 10^3/uL (0.0-1.0); MONOCYTES % (AUTO) 9.4 %; NEUTROPHILS # (AUTO) 4.8 10^3/uL (1.5-6.6); NEUTROPHILS % (AUTO) 72.8 %; PLT - PLATELET COUNT 182 10^3/uL (130-450); RED BLOOD COUNT 4.48 10^6/uL (4.70-6.10); RED CELL DISTRIBUTION WIDTH 13.4 % (12.0-15.0); WHITE BLOOD COUNT 6.6 x10^3/uL (4.8-10.8)
== END 2023-08-16 13:32 | disposition home or self-care (01) ==
LOC: LAB 13:31
PROVIDERS: ATTEND Nurse Practitioner Family
DX: D53.9 Nutritional anemia, unspecified (principal)
CPT/HCPCS: 36415; 82607; 82746; 85025

== ENCOUNTER 2023-09-06 08:00 | Outpatient (CLI) | payer MEDICARE, OTHER | END 2023-09-06 23:59 | disposition home or self-care (01) | LOC: LAB.N 08:00 | PROVIDERS: ATTEND Registered Nurse | DX: J34.89 Other specified disorders of nose and nasal sinuses (principal); R05.1 Acute cough; Z20.822 Contact with and (suspected) exposure to COVID-19 ==

== ENCOUNTER 2023-09-24 15:20 | Outpatient (CLI) | payer MEDICARE, OTHER ==
--- NOTE | 2023-09-24 21:20 | DEXA Report ---
PROCEDURE: Dexa Spine and/or Hip INDICATIONS: LUMBAR FX TECHNIQUE: Dual energy x-ray absorptiometry (DXA) was performed on a [employer]ipp[employer] System. Regions measur ed are the AP Spine, femoral neck, and if needed forearm. COMPARISON: None FINDINGS: Lumbar Spine: Bone Mineral Density 1.736 g/cm/cm,T score 4.3. Z score 4.8 Left Femoral Neck: Bone Mineral Density 1.159 g/cm/cm, T score 0.7. Z score 2. (T score greater or equal to -1.0: NORMAL) (T score from -1.1 to -2.4: OSTEOPENIA) (T score less than or equal to -2.5 to: OSTEOPOROSIS) Impression: By WHO criteria, this patient has normal bone density. Reviewed by: Angeles Santiago MD on 09/24/2023 9:19 PM PST Approved by: Angeles Santiago MD on 09/24/2023 9:19 PM PST Station ID: [id number]
== END 2023-09-24 15:21 | disposition home or self-care (01) ==
LOC: DI 15:20
PROVIDERS: ATTEND Nurse Practitioner Family
DX: S32.009A Unspecified fracture of unspecified lumbar vertebra, initial encounter for closed fracture (principal)

== ENCOUNTER 2024-02-27 08:17 | Outpatient (CLI) | payer MEDICARE, OTHER ==
[2024-02-27 08:39] LABS: ALBUMIN 4.4 g/dL (3.2-5.5); ALBUMIN/GLOBULIN RATIO 1.8 (1.0-2.2); BILIRUBIN,TOTAL 0.6 mg/dL (0.2-1.0); CALCIUM 10.3 mg/dL (8.5-10.3); CREATININE 1.3 mg/dL (0.6-1.3); POTASSIUM 4.9 mmol/L (3.5-4.5); TOTAL PROTEIN 6.9 g/dL (6.4-8.9)
[2024-02-27 08:42] LABS: BASOPHILS # (AUTO) 0.1 10^3/uL (0.0-0.1); EOSINOPHILS # (AUTO) 0.1 10^3/uL (0.0-0.7); HCT - HEMATOCRIT 40.1 % (42.0-52.0); HGB - HEMOGLOBIN 13.2 g/dL (14.0-18.0); LYMPHOCYTES # (AUTO) 0.9 10^3/uL (1.5-3.5); LYMPHOCYTES % (AUTO) 18.1 %; MEAN CORPUSCULAR HEMOGLOBIN 31.3 pg (27.0-31.0); MEAN CORPUSCULAR HGB CONC 32.9 g/dL (32.0-36.0); MEAN PLATELET VOLUME 9.7 fL (7.4-11.4); MONOCYTES # (AUTO) 0.6 10^3/uL (0.0-1.0); MONOCYTES % (AUTO) 11.1 %; NEUTROPHILS # (AUTO) 3.4 10^3/uL (1.5-6.6); NEUTROPHILS % (AUTO) 67.8 %; PLT - PLATELET COUNT 202 10^3/uL (130-450); RED BLOOD COUNT 4.22 10^6/uL (4.70-6.10); RED CELL DISTRIBUTION WIDTH 12.9 % (12.0-15.0)
[2024-02-27 09:17] LABS: ESTIMATED AVERAGE GLUCOSE 123 mg/dL (70-100); HEMOGLOBIN A1c% 5.9 % (4.27-6.07)
== END 2024-02-27 08:18 | disposition home or self-care (01) ==
LOC: LAB 08:17
PROVIDERS: ATTEND Nurse Practitioner Family
DX: D64.9 Anemia, unspecified (principal); R73.9 Hyperglycemia, unspecified
CPT/HCPCS: 36415; 80053; 82607; 82746; 83036; 85025